=== PATIENT | female | born 1960 | race Caucasian/White ===

== ENCOUNTER → 2018-01-04 15:51 | Outpatient (CLI) | payer OTHER, SELFPAY ==
[2018-01-04 17:46] LABS: Absolute Lymphocyte Count 2.08 X10^3/ul (0.83-4.51); Absolute Neutrophil Count 3.3 X10^3/uL (2.0-7.7); Basophil# 0.01 X10^3/uL; Basophil% 0.2 % (0-1); Eosinophil# 0.02 X10^3/uL; Eosinophils% 0.3 % (0-5); Hematocrit 38.9 % (37-47); Hemoglobin 12.5 g/dl (12.0-15.0); Lymphocyte # 2.08 X10^3/ul (4.0); Lymphocyte % 35.5 % (19-41); Mean Corp Hgb Conc 32.1 g/gl (32-36); Mean Corpuscular Hgb 29.5 pg (27.0-32.0); Mean Corpuscular Volume 91.7 fL (81-99); Mean Platelet Vol. 11.9 fl (6.2-12.0); Monocyte% 6.8 % (0-10); Neutrophil # 3.33 X10^3/uL (2.7-7.7); Neutrophil % 56.9 % (47-70); Platelet Count 235 K/mm3 (150-450); RBC Distribution Width CV 13.7 % (11.6-14.6); RBC Distribution Width SD 45.4 fl (35.1-43.9); Red Blood Count 4.24 M/mm3 (4.2-5.4); White Blood Count 5.9 K/mm3 (4.4-11.0)
[2018-01-04 18:05] LABS: POSITIVE COUNT NO; POSITIVE DIFFERENTIAL NO; POSITIVE MORPHOLOGY NO
[2018-01-04 18:23] LABS: Ferritin 99 ng/mL (8-252); Free T3 2.6 pg/mL (2.18-3.98); Iron 49 ug/dL (50-170); T4 Free Direct 0.91 ng/dL (0.76-1.46); Thyroid Stim Hormone (TSH) 1.21 uIU/mL (0.358-3.74)
[2018-01-05 10:44] LABS: Vitamin D,25 Hydroxy 30.3 ng/mL (29.95-100.01)
== END ==
PROVIDERS: Family Provider Family Medicine; PCP Family Medicine; Visit Provider Family Medicine
DX: E03.9 Hypothyroidism, unspecified (principal); D64.9 Anemia, unspecified; E55.9 Vitamin D deficiency, unspecified
CPT/HCPCS: 36415; 80053; 82306; 82728; 83540; 84439; 84443; 84481; 85025

== ENCOUNTER → 2018-02-03 11:50 | Outpatient (CLI) | payer OTHER, SELFPAY ==
[2018-02-03 16:33] LABS: Chlamydia Trachomatis by PCR Negative (Negative); Probe Check PASS; Sample Adequacy Control PASS; Specimen Processing Control PASS
== END ==
PROVIDERS: Family Provider Family Medicine; PCP Family Medicine; Visit Provider Family Medicine
DX: R30.0 Dysuria (principal)
CPT/HCPCS: 87086; 87088; 87491

== ENCOUNTER → 2018-06-04 10:32 | Outpatient (CLI) | payer OTHER, SELFPAY | PROVIDERS: Family Provider Family Medicine; PCP Family Medicine; Visit Provider Family Medicine | DX: M79.642 Pain in left hand (principal) | CPT/HCPCS: 73130 ==

== ENCOUNTER → 2018-07-03 14:38 | Outpatient (CLI) | payer OTHER, SELFPAY ==
[2018-07-06 18:41] LABS: HPV Reflexed? NOT INDICATED
== END ==
PROVIDERS: Family Provider Family Medicine; PCP Family Medicine; Referring Provider Nurse Practitioner Adult Health; Visit Provider Nurse Practitioner Adult Health
DX: Z01.419 Encounter for gynecological examination (general) (routine) without abnormal findings (principal)
CPT/HCPCS: 88175; G0145

== ENCOUNTER 2018-07-18 07:44 | Day surgery (SDC) | payer OTHER, SELFPAY ==
[2018-07-18] VITALS (7 sets, daily range): BP systolic 123–143; BP diastolic 69–81; PULSE 65–72; RESP 16; TEMP 36.3–36.4; O2SAT 96–99; BMI 37.7
--- NOTE | 2018-07-18 09:04 | H&P.OPEN ---
Past Medical/Surgical History - Planned Operation Planned Operative Procedure/s: COLONOSCOPY Date of Operative Procedure: 07/18/18 Permit Signed: No S.O.S: No Is This Patient Having a Total Joint: No - Previous Hospitalizations/Surgeries HX of Surgeries: GASTRIC BYPASS 2003. D AND C 2001. FOOT SURGERY 2009/ RT. TUBAL LIGATION/ ENDOMETRIAL ABLATION. LASIK EYE BILAT 2004 Any Problems With Anesthesia: No You/Your Family Experience Fever (Hyperthermia) With Anes: No Cholinesterase deficiency: No - Cardiovascular Hx Chest Pain within Last 2 months: No Hx of Irregular Heartbeat and/or Afib: No Hx Heart Attack: No Hx Congestive Heart Failure: No Hx Rheumatic Fever: No Hx Hypertension: Yes - STATES CONTROLLED WITH MED Hx Internal Defibrillator: No Hx Pacemaker: No Hx Cardiac Catheterization: No Hx Cardiac Surgery/Stents/Etc.: No Hx Stress Test: No - ECHO 2004 HX Edema: No Hx Pain in Legs when Walking/Leg Cramps: Yes - LEG CRAMPS - Respiratory Chronic Cough: No HX of Shortness of Breath: No Hoarseness: No Hx Chronic Obstructive Pulmonary Disease (COPD): No Hx Asthma: No Hx Emphysema: No Hx Sleep Apnea: No Hx Oxygen Use at Home: No Hx Respiratory Tract Infection/Cold (presently): No Do You Snore Loudly (louder than talking or can be heard): No Do You Often Feel Tired/ Fatigued/ Sleepy Dring Daytime?: No Has Anyone Observed You Stop Breathing During Sleep?: No Result (for STOP score): Negative Hx Smoking: Yes - QUIT 35 YRS AGO Smoking Status: Former smoker - Gastrointestinal Hx Gastroesophageal Reflux: No Hx Gastrointestinal Disorders: Yes - HX GASTRIC BYPASS Hx Gastrointestinal Bleed: No Hx Ulcer: No Hx Hiatal Hernia: No Difficulty Chewing/Swallowing: No Recent Onset of Swallowing Problems: No Special diet followed at home: Yes - SMALL PORTIONS Hx Unplanned Weight Loss of 20#: No HX Unplanned Weight Gain of 20#: No - Neurological Hx Seizures: No HX Syncope/Blackout Spells/Unconsciousness: No Hx CVA/Stroke: No Hx Transient Ischemic Attacks (TIA): No Hx Multiple Sclerosis: No Hx Parkinson's Disease: No Hx Head/Neck Injury: No Hx Headaches: Yes - STRESS INDUCED Hx Back Injury/Pain: No Recent Onset of Speech Difficulty: No Restless Legs: No Does patient have nerve stimulator: No Patient instructed to have device shut off: No Rep notified?: No - Blood Disorder Hx Leukemia: No Bleeding Tendencies: No Hx Deep Vein Thrombosis: No Hx High Cholesterol: No Blood Transmitted Disease: No Hx Hepatitis: No Hx Cirrhosis: No Hx Anemia: Yes - ON IRON Hx Blood Disorders: No - Reproduction : No Is Patient Lactating: No Hx Hysterectomy: No Hx Tubal Ligation: Yes Are You Post Menopause: Yes - Genitourinary Hx Renal Disease: No - Musculoskeletal Hx Arthritis: Yes Hx Rheumatoid Arthritis: No Hx Gout: No Recent Onset of an Orthopedic Problem: No - Endocrine Hx Diabetes: No Thyroid Disease: Yes - ON MED Hx Steroid Therapy: No - Psycho/Social Hx Substance Use: No Hx Alcohol Use: Yes - 1 DRINK/MONTH Hx Anxiety: Yes Hx Depression: Yes - ON MED Mental Illness: No Hx Dementia: No - Miscellaneous Hx Cancer: No Recent Exposure to Contagious Disease: No Active MRSA: No Hx of C-Diff: No Any Loose Teeth: No Allergies No Known Allergies Allergy (Verified 07/17/18 11:10) - Discharge Is Pt Admitted From a Intermediate, or a Longterm: No Who Could Help: After D/C, Where Do you Plan to Go: Return Home - Physical Exam General: Alert, Oriented x3, Cooperative, No apparent distress Lungs: Normal air movement Cardiovascular: Regular rate, Regular Rhythm Abdomen: Soft, Non Tender, Non-Distended Extremities: No clubbing, No cyanosis Neurological: Cranial nerves II-XII grossly intact Psych/Mental Status: Normal Affect Vital Signs Temp Pulse Resp BP Pulse Ox 97.6 F L 66 16 139/77 H 97 07/18/18 08:24 07/18/18 08:24 07/18/18 08:24 07/18/18 08:24 07/18/18 08:24 Oxygen Delivery Method Room Air Weight: 206 lb 3.2 oz Body Mass Index (BMI) 37.7 Assessment/Plan 57 y/o F for screening colonoscopy, no prev. colonoscopy, 1st degree cousin on fathers side dx w colon cancer at 65y/o, no 1st degree, +BM daily Surgery Risks - Colonoscopy I discussed with the patient the risks of the procedure: Yes Risks Include but are not Limited To: Risks include but are not limited to: Bleeding, perforation requiring further surgery, inability to complete colonoscopy requiring barium enema. Pt had no further questions
--- NOTE | 2018-07-18 09:44 | OP.ENDO_ITS ---
Patient Name: Tahmina Altman Procedure Date: 07/18/2018 8:52 AM Date of : 1960 Age: 57 Procedure: Colonoscopy Indications: Screening for colorectal malignant neoplasm Providers: Arelis Sandoval MD Referring MD: Arelis Sandoval MD Medicines: Monitored Anesthesia Care Patient Profile: Last Colonoscopy: none. The patient's first colonoscopy is today. Complications: No immediate complications. Procedure: Pre-Anesthesia Assessment: - Prior to the procedure, a History and Physical was performed, and patient medications and allergies were reviewed. The patient's tolerance of previous anesthesia was also reviewed. The risks and benefits of the procedure and the sedation options and risks were discussed with the patient. All questions were answered, and informed consent was obtained. Prior Anticoagulants: The patient has taken no previous anticoagulant or antiplatelet agents. ASA Grade Assessment: II - A patient with mild systemic disease. After reviewing the risks and benefits, the patient was deemed in satisfactory condition to undergo the procedure. After I obtained informed consent, the scope was passed under direct vision. Throughout the procedure, the patient's blood pressure, pulse, and oxygen saturations were monitored continuously. The colonoscope was introduced through the anus and advanced to the cecum, identified by the appendiceal orifice, ileocecal valve and palpation. The colonoscopy was performed without difficulty. The patient tolerated the procedure well. The quality of the bowel preparation was good. Scope In: 9:10:27 AM Scope Withdrawal Time 0 hours 15 minutes 44 seconds Scope Out: 9:35:27 AM Total Procedure Duration Time 0 hours 25 minutes 0 seconds Findings: The perianal and digital rectal examinations were normal. Multiple small-mouthed diverticula were found in the sigmoid colon and descending colon. The retroflexed view of the distal rectum and anal verge was normal and showed no anal or rectal abnormalities. Impression: - Diverticulosis in the sigmoid colon and in the descending colon. - The distal rectum and anal verge are normal on retroflexion view. - No specimens collected. Recommendation: - Discharge patient to home. - High fiber diet. - Continue present medications. - Repeat colonoscopy in 10 years for surveillance. Procedure Code(s): --- Professional --- G0121, Colorectal cancer screening; colonoscopy on individual not meeting criteria for high risk Diagnosis Code(s): --- Professional --- Z12.11, Encounter for screening for malignant neoplasm of colon K57.30, Diverticulosis of large intestine without perforation or abscess without bleeding CPT copyright 2017 [employer]. All rights reserved. The codes documented in this report are preliminary and upon pourer crane ladle review may be revised to meet current compliance requirements. MD Arelis Huang MD 07/18/2018 9:43:59 AM This report has been signed electronically. Number of Addenda: 0 Note Initiated On: 07/18/2018 8:52 AM
== END 2018-07-18 10:28 | disposition home or self-care (01) ==
LOC: EN 07:45 → AC 07:46
PROVIDERS: Family Provider Family Medicine; PCP Family Medicine; Referring Provider Surgery; Visit Provider Surgery
PROC: 0DJD8ZZ Inspection of Lower Intestinal Tract, Via Natural or Artificial Opening Endoscopic (ICD-10-PCS; CPT 45378; principal; 2018-07-18 08:40)
DX: Z12.11 Encounter for screening for malignant neoplasm of colon (principal); K57.30 Diverticulosis of large intestine without perforation or abscess without bleeding; D64.9 Anemia, unspecified; F41.9 Anxiety disorder, unspecified; E06.9 Thyroiditis, unspecified; I10 Essential (primary) hypertension; Z80.0 Family history of malignant neoplasm of digestive organs; Z98.84 Bariatric surgery status; Z87.891 Personal history of nicotine dependence; Z79.899 Other long term (current) drug therapy
CPT/HCPCS: 45378; J7120

== ENCOUNTER → 2018-08-16 12:42 | Outpatient (CLI) | payer OTHER, SELFPAY ==
--- NOTE | 2018-08-16 12:59 | BI_ITS ---
MAMMOGRAPHY - BILATERAL SCREENING REASON FOR EXAM: Female, 57 years old. Routine annual screening examination. PERTINENT HISTORY: Mother with breast cancer. Aunt with breast cancer. Remote left excisional breast biopsy. TECHNIQUE: Digital bilateral breast nestor (3D mammographic acquisition) in the CC and MLO projections. 2-D mediolateral oblique (MLO) and craniocaudad (CC) views of both breasts were obtained. CAD: Full Field Digital Mammography with Computer Added Detection was performed. COMPARISON: Comparison is made with prior outside examination dated November 20, 2015. FINDINGS: Breast Composition: There are scattered areas of fibroglandular density. Questionable 5.8 mm x 7.8 mm slightly irregular nodule in the anterior mid medial aspect of the right breast. Correlation with ultrasound is recommended. No other significant abnormalities are identified. BI/SCREENING MAMM (CAD), BILAT IMPRESSION: Questionable 5.8 mm x 7.8 mm slightly irregular nodule in the anterior and medial aspect of the right breast as described. Correlation with ultrasound is recommended. ASSESSMENT CATEGORY: BIRADS Category 0: Incomplete. Need additional imaging evaluation. A letter regarding these results will be sent to the patient by the facility within 30 days. Approximately 10% of breast cancers are not detected by mammography. A normal mammogram should not delay biopsy of a clinically suspicious abnormality. [id number] Electronically Signed: Anibal Ng MD at 12:21 EST Tel [phone], Service support ,
--- NOTE | 2018-08-16 13:33 | BD_ITS ---
STUDY: DUAL ENERGY X-RAY ABSORPTIOMETRY / DXA REASON FOR EXAM: Female, 57 years old. The patient is postmenopausal. No loss of height. TECHNIQUE: Bone Mineral Density (BMD) measurements of lumbar spine and bilateral hips were obtained. COMPARISON: None. FINDINGS: Lumbar Spine (L1-L4): g/cm2 (1.135) / T-score (-0.4) / Z-score (0.6) Findings are suggestive of normal bone density with a low fracture risk. Left Femur Total: g/cm2 (0.882) / T-score (-1.0) / Z-score (-0.3) Left Femoral Neck: g/cm2 (0.735) / T-score (-2.2) / Z-score (-1.1) Right Femur Total: g/cm2 (0.859) / T-score (-1.2) / Z-score (-0.4) Right Femoral Neck: g/cm2 (0.754) / T-score (-2.0) / Z-score (-1.0) BD/Dexa Bone Density Study IMPRESSION: The patient is considered osteopenic as outlined below according to World Miles Organization (WHO) criteria with a moderate fracture risk. Reference Information: The T-score is the number of standard deviations above or below the standard which is normal for young adults at their peak bone mineral density. The World Health Organization (WHO) interprets the T-scores as follows: Above -1 Normal bone density Between -1 and -2.5 Osteopenia Equal to / or below -2.5 Osteoporosis As a practical clinical guideline, osteopenia may be graded as follows: Mild -1 through -1.5 Moderate -1.6 through -2.0 Severe -2.1 through -2.4 The Z-score is the number of standard deviations above or below age-matched controls. A Z-score of less than -1.5 would be considered abnormal. References: 1. NIH Osteoporosis and Related Bone Diseases http://www.osteo.org 2. International Society for Clinical Densitometry http://www.iscd.org 3. National Osteoporosis Foundation http://www.nof.org Electronically Signed: Anibal Ng MD at 12:28 EST Tel [phone], Service support ,
== END ==
PROVIDERS: Family Provider Family Medicine; PCP Family Medicine; Referring Provider Nurse Practitioner Adult Health; Visit Provider Nurse Practitioner Adult Health
DX: Z12.31 Encounter for screening mammogram for malignant neoplasm of breast (principal); Z78.0 Asymptomatic menopausal state
CPT/HCPCS: 77063; 77067; 77080

== ENCOUNTER → 2018-08-23 08:15 | Outpatient (CLI) | payer OTHER, SELFPAY ==
--- NOTE | 2018-08-23 08:19 | US_ITS ---
STUDY: ULTRASOUND BREAST - RIGHT REASON FOR EXAM: Female, 57 years old. Abnormal screening mammogram. TECHNIQUE: Axial and longitudinal images of the RIGHT breast were performed with a high resolution ultrasound transducer. COMPARISON: Comparison is made with prior mammogram dated August 16, 2018. FINDINGS: RIGHT Breast: There is a 4 mm x 6 mm x 5 mm well-defined slightly echogenic nodule at the 12:00 position of the breast at 3 cm from the nipple. This most likely represents a small lipoma. There is also an 8 mm x 4 mm x 5 mm well-defined echogenic nodule with a hypoechoic ring at the 1:00 position of the breast at approximately 1 cm from nipple. This most likely represents a small lymph node. This corresponds to the mammographic findings. US/Breast Limited Unilateral IMPRESSION: The mammographic findings are suggestive of a small lymph node at the 1:00 position of the breast at approximately 1 cm from nipple. Incidental note is made of a 4 mm x 6 mm x 5 mm well-defined echogenic nodule at the 12:00 position of breast at 3 cm from nipple most likely represent a small lipoma. ASSESSMENT CATEGORY: BIRADS Category 2: Benign. A letter regarding these results will be sent to the patient by the facility within 30 days. Electronically Signed: Anibal Ng MD at 9:13 EST Tel [phone], Service support ,
== END ==
PROVIDERS: Family Provider Family Medicine; PCP Family Medicine; Referring Provider Nurse Practitioner Adult Health; Visit Provider Nurse Practitioner Adult Health
DX: R92.8 Other abnormal and inconclusive findings on diagnostic imaging of breast (principal)
CPT/HCPCS: 76642

== ENCOUNTER → 2018-12-04 18:15 | Outpatient (CLI) | payer OTHER, SELFPAY ==
[2018-07-18 08:24] VITALS: BMI 37.7
== END ==
PROVIDERS: Family Provider Family Medicine; PCP Family Medicine; Referring Provider Family Medicine; Visit Provider Family Medicine
DX: R30.0 Dysuria (principal)
CPT/HCPCS: 87086; 87088

== ENCOUNTER → 2019-02-22 | Outpatient (CLI) | payer OTHER, SELFPAY ==
[2018-07-18 08:24] VITALS: BMI 37.7
[2019-02-22 15:52] LABS: BUN 22 mg/dL (7-18); Creatinine, Serum 0.71 mg/dL (0.55-1.02); Glucose 80 mg/dL (74-106)
[2019-02-22 15:53] LABS: ALB/GLOB Ratio 1.1 RATIO (0.9-2.4); AST(SGOT) 21 U/L (15-37); Alanine Aminotransfer ALT/SGPT 24 U/L (13-56); Albumin, Serum 3.8 g/dL (3.2-5.0); Alkaline Phosphatase 101 U/L (45-117); Anion Gap 6 (5-15); Calcium,Total 8.9 mg/dL (8.5-10.1); Chloride 104 mmol/L (98-107); Cholesterol 196 mg/dL (200); EST Glomerular Filtration Rate 90 mL/min (>60); Est Glom Filt Rate - Afr Amer 109 mL/min (>60); Globulin 3.5 g/dL (2.2-4.2); High Density Lipoprotein 98 mg/dL; Potassium 4.2 mmol/L (3.5-5.1); Protein, Total 7.3 g/dL (6.4-8.2); Sodium Level 139 mmol/L (136-145); Thyroid Stim Hormone (TSH) 2.22 uIU/mL (0.358-3.74); Triglycerides 42 mg/dL; Very Low Density Lipoprotein 8 mg/dL (5-40)
[2019-02-22 17:30] LABS: Vitamin D,25 Hydroxy 25.5 ng/mL (29.95-100.01)
[2019-02-27 18:02] LABS: Ferritin 87 ng/mL (8-252); Iron 46 ug/dL (50-170)
== END | disposition home or self-care (01) ==
LOC: MFPLAB 12:32
PROVIDERS: Family Provider Family Medicine; PCP Family Medicine; Referring Provider Family Medicine; Visit Provider Family Medicine
DX: I10 Essential (primary) hypertension (principal); E03.9 Hypothyroidism, unspecified; E55.9 Vitamin D deficiency, unspecified
CPT/HCPCS: 36415; 80053; 80061; 82306; 82728; 83540; 84443

== ENCOUNTER → 2020-07-20 | Outpatient (CLI) | payer OTHER, SELFPAY ==
[2020-07-24 17:51] LABS: HPV Reflexed? NOT INDICATED
== END | disposition home or self-care (01) ==
LOC: MFPLAB 13:46
PROVIDERS: PCP Family Medicine; Visit Provider Family Medicine
DX: Z01.419 Encounter for gynecological examination (general) (routine) without abnormal findings (principal)
CPT/HCPCS: 88175; G0145

== ENCOUNTER → 2020-08-11 06:59 | Outpatient (CLI) | payer OTHER, SELFPAY ==
--- NOTE | 2020-08-11 07:03 | BI_ITS ---
MAMMOGRAPHY - BILATERAL SCREENING REASON FOR EXAM: Female, 59 years old. Routine annual screening examination. PERTINENT HISTORY: Mother with breast cancer. Aunt with breast cancer. Remote left excisional breast biopsy. TECHNIQUE: Digital bilateral breast shabnam (3D mammographic acquisition) in the CC and MLO projections. 2-D mediolateral oblique (MLO) and craniocaudad (CC) views of both breasts were obtained. CAD: Full Field Digital Mammography with Computer Added Detection was performed. COMPARISON: Comparison is made with prior study dated 08/16/2018. FINDINGS: Breast Composition: There are scattered areas of fibroglandular density. There are no dominant masses or suspicious calcifications. Stable 6 mm nodule in the anterior mid medial portion of the right breast. No other significant abnormalities are identified. There has been no significant change since the prior study. BI/SCREEN MAMM (CAD) W/SHABNAM BILAT IMPRESSION: Stable bilateral screening mammogram. Yearly follow-up mammogram recommended. (A) ASSESSMENT CATEGORY: BIRADS Category 2: Benign. A letter regarding these results will be sent to the patient by the facility within 30 days. Approximately 10% of breast cancers are not detected by mammography. A normal mammogram should not delay biopsy of a clinically suspicious abnormality. [id number] Electronically Signed: Anibal Ng, at 8:41 EST , Service support ,
== END ==
PROVIDERS: PCP Family Medicine; Referring Provider Nurse Practitioner Adult Health; Visit Provider Nurse Practitioner Adult Health
DX: Z12.31 Encounter for screening mammogram for malignant neoplasm of breast (principal)
CPT/HCPCS: 77063; 77067

== ENCOUNTER → 2020-09-10 10:33 | Outpatient (CLI) | payer OTHER, SELFPAY ==
[2018-07-18 08:24] VITALS: BMI 37.7
[2020-09-10 12:44] LABS: Anion Gap 3 (5-15); BUN 26 mg/dL (7-18); BUN/Creat Ratio 33.1 RATIO (10-20); Calcium,Total 9.5 mg/dL (8.5-10.1); Chloride 103 mmol/L (98-107); Cholesterol 219 mg/dL (200); Creatinine, Serum 0.78 mg/dL (0.55-1.02); EST Glomerular Filtration Rate 80 mL/min (>60); Est Glom Filt Rate - Afr Amer 97 mL/min (>60); Glucose 86 mg/dL (74-106); High Density Lipoprotein 92 mg/dL; Potassium 4.5 mmol/L (3.5-5.1); Sodium Level 137 mmol/L (136-145); Thyroid Stim Hormone (TSH) 2.89 uIU/mL (0.358-3.74); Triglycerides 55 mg/dL; Very Low Density Lipoprotein 11 mg/dL (5-40)
[2020-09-10 13:07] LABS: Vitamin D,25 Hydroxy 31.8 ng/mL
== END ==
PROVIDERS: PCP Family Medicine; Referring Provider Family Medicine; Visit Provider Family Medicine
DX: I10 Essential (primary) hypertension (principal); E55.9 Vitamin D deficiency, unspecified; E03.9 Hypothyroidism, unspecified
CPT/HCPCS: 36415; 80048; 80061; 82306; 84443

== ENCOUNTER → 2021-08-13 08:15 | Outpatient (CLI) | payer OTHER, SELFPAY ==
[2021-08-13 09:49] LABS: Hematocrit 42.6 % (37-47); Hemoglobin 13.3 g/dL (12.0-15.0); Mean Corp Hgb Conc 31.2 g/dL (32-36); Mean Corpuscular Hgb 28.5 pg (27.0-32.0); Mean Corpuscular Volume 91.2 fL (81-99); Mean Platelet Vol. 11.9 fl (6.2-12.0); Platelet Count 219 K/mm3 (150-450); RBC Distribution Width CV 14.6 % (11.6-14.6); RBC Distribution Width SD 48.9 fl (35.1-43.9); Red Blood Count 4.67 M/mm3 (4.2-5.4); White Blood Count 5.6 K/mm3 (4.4-11.0)
[2021-08-13 10:09] LABS: Vitamin B12 1801 pg/mL (211-911); Vitamin D,25 Hydroxy 35.7 ng/mL
[2021-08-13 10:17] LABS: Anion Gap 5 (5-15); BUN 22 mg/dL (7-18); BUN/Creat Ratio 27.7 RATIO (10-20); Calcium,Total 9.9 mg/dL (8.5-10.1); Chloride 103 mmol/L (98-107); Cholesterol 192 mg/dL (200); Creatinine, Serum 0.79 mg/dL (0.55-1.02); EST Glomerular Filtration Rate 79 mL/min (>60); Est Glom Filt Rate - Afr Amer 95 mL/min (>60); Glucose 97 mg/dL (74-106); High Density Lipoprotein 87 mg/dL; Iron 52 ug/dL (50-170); Potassium 4.3 mmol/L (3.5-5.1); Sodium Level 139 mmol/L (136-145); Thyroid Stim Hormone (TSH) 2.87 uIU/mL (0.358-3.74); Triglycerides 51 mg/dL; Very Low Density Lipoprotein 10 mg/dL (5-40)
== END ==
PROVIDERS: PCP Family Medicine; Referring Provider Family Medicine; Visit Provider Family Medicine
DX: E03.9 Hypothyroidism, unspecified (principal); I10 Essential (primary) hypertension; D64.9 Anemia, unspecified; E55.9 Vitamin D deficiency, unspecified
CPT/HCPCS: 36415; 80048; 80061; 82306; 82607; 83540; 84443; 85027

== ENCOUNTER → 2021-08-16 15:40 | Outpatient (CLI) | payer OTHER, SELFPAY ==
[2021-08-16 18:11] LABS: CRP 5.43 mg/L (0.0-3.0)
[2021-08-18 13:48] LABS: ANTINUCLEAR ANTIBODIES DIRECT Negative (Negative)
== END ==
PROVIDERS: PCP Family Medicine; Visit Provider Family Medicine
DX: R53.83 Other fatigue (principal)
CPT/HCPCS: 85007; 86038; 86140

== ENCOUNTER 2022-11-06 08:20 | Emergency (ER) | payer OTHER, SELFPAY ==
[2022-11-06 08:23] VITALS: BP 158/74; PULSE 88; RESP 16; TEMP 36.1; O2SAT 95; BMI 40.1
--- NOTE | 2022-11-06 08:46 | CT_ITS ---
EXAM: CT ABDOMEN AND PELVIS WITH INTRAVENOUS CONTRAST CLINICAL INDICATION: LLQ abd pain TECHNIQUE: Helically acquired images were obtained of the abdomen and pelvis with intravenous contrast. This CT exam was performed using one or more of the following dose reduction techniques: automated exposure control, adjustment of the mA and/or kV according to patient size, and/or use of iterative reconstruction technique. This report was created using [employer] report generation technology. CONTRAST: IV 100mL [id number] RADIATION DOSE: CTDIvol = 18.53 mGy, DLP = 1206.27 mGy-cm COMPARISON: None. FINDINGS: LOWER THORAX: Unremarkable. Lung bases are clear. No cardiomegaly. No significant pericardial effusion. ABDOMEN: LIVER: Unremarkable. Homogeneous. No focal mass. GALLBLADDER AND BILE DUCTS: Unremarkable. No calcified gallstones. No gallbladder distention or wall edema. No intra- or extrahepatic biliary ductal dilation. PANCREAS: Unremarkable. No focal cystic or solid mass. SPLEEN: Unremarkable. Normal size without focal cystic or solid mass. ADRENALS: Unremarkable. No nodules. KIDNEYS AND URETERS: Small nonenhancing cysts in both kidneys. Normal renal size and position. STOMACH AND BOWEL: Diverticula with abnormal intramedullary thickening and inflammatory changes of the pericolic fat consistent with diverticulitis. No diverticular abscess or phlegmon. Surgical sutures in the left proximal small bowel. No stomach or bowel distention. PELVIS: APPENDIX: Normal. BLADDER: Unremarkable. REPRODUCTIVE: Unremarkable as visualized. No mass. ABDOMEN and PELVIS: INTRAPERITONEAL SPACE: Unremarkable. No ascites or other fluid collection. No free air. BONES/JOINTS: Right-sided L3 benign vertebral body hemangioma. No suspicious lytic or blastic abnormality. SOFT TISSUES: Unremarkable. No discrete abdominal or pelvic wall hernia. VASCULATURE: Unremarkable. Abdominal aorta is non-dilated. LYMPH NODES: Unremarkable. No enlarged lymph nodes. CT/Abdomen/Pelvis W IV Cont ONLY IMPRESSION: Acute diverticulitis of the sigmoid colon without diverticular abscess or phlegmon. Electronically Signed: Julio Christian MD at 9:46 EST ,
--- NOTE | 2022-11-06 08:46 | ED.VIS.GI ---
HPI HPI - GI History of Present Illness Chief Complaint: Abd Pain Detail of Chief Complaint: Left lower quadrant abdominal pain Informant: patient Abdominal Pain/Flank Pain Onset: Today and Yesterday Context: Gradual Onset Timing: Continuous Location: LLQ Current Severity: Mild Maximum Severity: Moderate Worsened by: Nothing Relieved by: Nothing Nausea/Vomiting/Emesis GI Symptom: Negative for Nausea or Vomiting Diarrhea/Melena/Hematochezia GI Symptom: Negative for Diarrhea, Melena or Hematochezia Associated Symptoms Associated Symptoms: Negative for Dysuria, Frequency or Hematuria Narrative Narrative: 61-year-old female history of hypertension and prior gastric bypass about 18 years ago. States that Monday she is developed left lower quadrant abdominal pain. She had it 2 weeks ago and lasted about 12 to 24 hours and resolved. Is now been constant for last 2 to 3 days. She denies any nausea, vomiting or diarrhea. No fever or chills. No significant constipation. Denies any dysuria. No weight change. No melena. No abdominal trauma. Prior similar symptoms: No Recent Illness/Hospitalization: No PFSH PFS Medical History Depression HTN (hypertension) Home Medications Cetirizine Hcl [Zyrtec] 10 mg PO DAILY ALLERGIES 07/17/18 [History Last Taken Unknown] L.acidoph, paracasei,B. lactis 10 billion cell capsule 1 ea PO DAILY SUPPLEMENT 07/17/18 [History Last Taken Unknown] ascorbic acid (vitamin C) 1,000 mg tablet (Vitamin C) 1,000 mg PO DAILY SUPPLEMENT 07/17/18 [History Last Taken Unknown] biotin 5 mg capsule 5 mg PO DAILY SUPPLEMENT 07/17/18 [History Last Taken Unknown] desvenlafaxine succinate 50 mg tablet,extended release 24 hr (Pristiq) 50 mg PO DAILY ANTIDEPRESSANT 07/17/18 [History Last Taken Unknown] dextroamphetamine-amphetamine 30 mg tablet (Adderall) 15 mg PO BID ADHD 07/17/18 [History Last Taken Unknown] ferrous gluconate 236 mg (27 mg iron) tablet 65 mg PO DAILY SUPPLEMENT 07/17/18 [History Last Taken Unknown] levothyroxine 50 mcg tablet (Synthroid) 50 mcg PO DAILY THYROID 07/17/18 [History Last Taken 07/18/18 06:15 50 MCG] losartan 50 mg-hydrochlorothiazide 12.5 mg tablet 1 ea PO DAILY BP 07/17/18 [History Last Taken Unknown] multivitamin (Multiple Vitamins tablet) 1 ea PO DAILY SUPPLEMENT 07/17/18 [History Last Taken Unknown] ciprofloxacin HCl 500 mg tablet (Cipro) 500 mg PO BID 10 days #20 tabs 11/06/22 [Rx Last Taken Unknown] hydrocodone-acetaminophen 5-325mg 5mg-325mg 1 tab PO Q4H PRN pain 5 days #14 tabs 11/06/22 [Rx Last Taken Unknown] metronidazole 500 mg tablet 500 mg PO TID 10 days #30 tabs 11/06/22 [Rx Last Taken Unknown] Allergy/AdvReac Type Severity Reaction Status Date / Time morphine AdvReac Nausea Verified 11/06/22 08:21 Surgical History Gastric bypass status for obesity H/O foot surgery Social History Smoking Status: Never smoker ROS ROS ED ROS Narrative Left lower quadrant abdominal pain. Review of Systems ROS Unobtainable: Denies due to encephalopathy Constitutional Constitutional ED: Denies chills or fever(s) ENT ENT ED: Denies ear pain Cardiovascular Cardiovascular: Denies chest pain Respiratory/Chest Respiratory/Chest: Denies cough or dyspnea Gastrointestinal Gastrointestinal: Reports abdominal pain; Denies constipation, diarrhea, melena, nausea or vomiting Genitourinary Genitourinary ED: Denies dysuria or hematuria Musculoskeletal Musculoskeletal: Denies arthralgias or back pain Integumentary Denies abscess Neurologic Neurologic: Denies headache(s) Psychiatric Psychiatric: Denies anxiety or depression Endocrine Endocrinology: Denies polydipsia Hematologic/Lymphatic Hematologic/Lymphatic: Denies easy bleeding Allergic/Immunologic Allergic/Immunologic ED: Denies mouth swelling or tongue swelling EXAM Physical Exam Narrative Exam Narrative: 61-year-old female no acute distress. Vital signs stable afebrile. H EENT exam unremarkable. Lungs clear. Heart regular rhythm no murmur. Abdomen soft, nondistended, normal bowel sounds no peritoneal signs. Tender only in the left lower quadrant. No hernia or mass. No signs of trauma. No pulsatile mass. Both the right upper and right lower quadrants are unremarkable. Moving all 4 extremities. Calves are nontender without edema. Back nontender. Neurologically she is awake and alert. Const Vital Signs: 11/06/22 08:23 Temperature 97.0 F L Temperature Source Temporal Pulse Rate 88 Respiratory Rate 16 Blood Pressure 158/74 H Blood Pressure Mean 102 Pulse Ox 95 Oxygen Delivery Method Room Air Positive well nourished, well developed and obese; Negative for cachectic, contractures or unkempt General Appearance ED: well developed and NAD; Negative for unkempt, cachectic, contractures or pallor Nutritional Appearance: obese; Negative for cachectic HEENT Reports moist mucous membranes normocephalic and atraumatic; Negative for trauma or tenderness Eyes PERRL and EOMs intact bilaterally General Eye ED: Negative for pale conjunctiva or scleral icterus Neck no lymphadenopathy, supple and no JVD General: Negative for tenderness Carotids: Negative for other Lymph Lymphatic: Negative for other Resp normal respiratory effort and clear to auscultation bilaterally Effort and Inspection: Negative for respiratory distress or retractions Auscultation: Negative for rales, rhonchi or wheezes Cardio regular rate, regular rhythm, S1 normal heart sound, S2 normal heart sound and no murmurs Rate: Negative for bradycardia Rhythm: Negative for abnormal rhythm GI non-distended and no masses; Negative for non-tender GI Narrative: Left lower quadrant tenderness only. No hernia or mass. Inspection: Negative for abdominal distention Auscultation: normoactive bowel sounds Palpation: soft and tender; Negative for guarding, rigid or hepatomegaly Back/Spine no CVA tenderness General Back: Negative for CVA tenderness Cervical Spine: Negative for cervical spine tenderness Thoracic Spine / Upper Back: Negative for thoracic spinal tenderness Lumbar Spine / Lower Back: Negative for lumbar spinal tenderness Coccyx: Negative for other Extremity full ROM General Extremety ED: Negative for edema or tenderness General Extremity: Negative for edema Neuro CN's II-XII intact bilaterally and moves all extremities Sensorium / Orientation: alert, oriented to person, oriented to place and oriented to time; Negative for orientation impaired, confused, lethargic or stuporous Motor Exam: strength 5/5 throughout Psych mental status grossly normal and thought process normal Appearance: Negative for unkempt Attitude: No agitated Mood & Affect: Negative for depressed, anxious or tearful Skin no wounds General Skin Exam: Negative for jaundice or pallor Lesions: no lesions Rashes: no rashes Trauma: Negative for abrasion MDM MDM MDM Narrative Medical decision making narrative: 61-year-old left lower quadrant abdominal pain differential would include acute diverticulitis versus hernia which clinically I do not find at this time. Versus UTI but she has no urinary symptoms. Versus constipation or other etiology. CAT scan and labs are being obtained. She did not want any thing for pain. She is not having any nausea. Patient doing well at 9:58 PM. We went over all of her test results. Her history and exam and her test are consistent with acute sigmoid diverticulitis. She will be started on Cipro and Flagyl for 10 days each. Cipro twice daily. Flagyl 3 times daily. Tylenol for pain. She will be given a dose of each antibiotic here prior to discharge. She will be given a prescription for [place] as needed for pain. She did not want to get that filled like she needed to. She is instructed follow-up with her primary care physician Dr. Mayco Viera to ensure she is improving. Return if worse. Lab Data Attestation: I reviewed the patient's lab results. Lab results narrative: CBC unremarkable. White count 8.4. H&H of 13.1 and 42. Platelets 215. Urinalysis normal no white or red cells. No bacteria. No nitrites. CMP unremarkable. Gap of 7. BUN 19 creatinine 0.8. Liver enzymes unremarkable. CAT scan the abdomen with IV contrast shows acute sigmoid diverticulitis. No abscess or perforation. Read by the radiologist and reviewed by me. Labs: Laboratory Results - last 24 hr 11/06/22 11/06/22 11/06/22 08:35 08:35 08:55 WBC 8.4 RBC 4.63 Hgb 13.1 Hct 42.0 MCV 90.7 MCH 28.3 MCHC 31.2 L RDW Std Deviation 48.7 H RDW Coeff of [place] 14.6 Plt Count 215 MPV 11.7 Immature Gran % (Auto) 0.200 Neut % (Auto) 64.4 Lymph % (Auto) 26.5 [place] % (Auto) 8.6 Eos % (Auto) 0.1 Baso % (Auto) 0.2 Absolute Neuts (auto) 5.4 Absolute Lymphs (auto) 2.23 Nucleated RBC % 0 Sodium 142 Potassium 3.8 Chloride 106 Carbon Dioxide 29.0 Anion Gap 7 BUN 19 H Creatinine 0.84 Estim Creat Clear Calc 56.33 Est GFR (MDRD) Af Amer 88 Est GFR (MDRD) Non-Af 73 BUN/Creatinine Ratio 22.5 H Glucose 103 Calcium 9.5 Total Bilirubin 1.10 H AST 20 ALT 20 Alkaline Phosphatase 94 Total Protein 7.9 Albumin 3.6 Globulin 4.3 H Albumin/Globulin Ratio 0.8 L Urine Color Yellow Urine Clarity Clear Urine pH 5.0 Ur Specific [place] 1.020 Urine Protein 15 H Urine Glucose (UA) Normal Urine Ketones Negative Urine Occult Blood 10 H Urine Nitrite Negative Urine Bilirubin 1 H Urine Urobilinogen 1 H Ur Leukocyte Esterase 100 H Urine RBC 0 SEEN Urine WBC 0-5 SEEN Ur Squamous Epith Cells 0-5 SEEN Urine Bacteria 0 SEEN Urine Mucus 0 SEEN Radiography Diagnostic Testing: Clinical Impression(s) from Imaging Studies Abdomen/Pelvis CT 11/06/22 08:46 IMPRESSION: Acute diverticulitis of the sigmoid colon without diverticular abscess or phlegmon. Electronically Signed: Julio Christian MD at 9:46 EST Reading Location ID and State: [address] [place] [address] , Service support , Discharge Plan Triage Chief Complaint: Abd Pain ED Provider: Maurisio Lobo Dx/Rx/DC Orders Clinical Impression: Diverticulitis of sigmoid colon, Abdominal pain, History of hypertension Instructions: ED Diverticulitis Prescriptions: New ciprofloxacin HCl [Cipro] 500 mg tablet 500 mg PO BID 10 Days Qty: 20 0RF metronidazole 500 mg tablet 500 mg PO TID 10 Days Qty: 30 0RF hydrocodone-acetaminophen 5-325 mg tablet 1 tab PO Q4H PRN (Reason: pain) 5 Days Qty: 14 0RF No Action multivitamin [Multiple Vitamins] 1 EACH tablet 1 ea PO DAILY ascorbic acid (vitamin C) [Vitamin C] 1,000 MG tablet 1,000 mg PO DAILY biotin 5 MG capsule 5 mg PO DAILY dextroamphetamine-amphetamine [Adderall] 30 MG tablet 15 mg PO BID levothyroxine [Synthroid] 50 MCG tablet 50 mcg PO DAILY losartan-hydrochlorothiazide 1 EACH tablet 1 ea PO DAILY desvenlafaxine succinate [Pristiq] 50 MG tablet 50 mg PO DAILY ferrous gluconate 236 MG tablet 65 mg PO DAILY L.acidoph, paracasei,B. lactis 1 EACH capsule 1 ea PO DAILY Cetirizine Hcl [Zyrtec] 10 MG tablet 10 mg PO DAILY Primary Care Provider: Brandon Umaña Referrals: Brandon Umaña MD [Primary Care Provider] - 3-5 Days Activity Restrictions/Additional Instructions: Take both antibiotics Cipro and Flagyl till gone. Cipro twice a day. Flagyl 3 times a day both for 10 days. You have sigmoid diverticulitis which is inflammation of diverticulosis in your lower left colon where you have the pain. Tylenol for pain. If not strong enough you get your narcotic pain medication filled which is [place]. If you are taking the [place] do not take extra Tylenol because it has Tylenol in it. [place] diet increase slowly as tolerated. Follow-up with your doctor to ensure you are improving. Return emergency department if you are feeling a lot worse. Disposition Disposition: Home, Self Care
[2022-11-06 08:55] LABS: Absolute Lymphocyte Count 2.23 X10^3/uL (0.83-4.51); Absolute Neutrophil Count 5.4 X10^3/uL (2.0-7.7); Basophil# 0.02 X10^3/uL; Basophil% 0.2 % (0-1); Eosinophil# 0.01 X10^3/uL; Eosinophils% 0.1 % (0-5); Hemoglobin 13.1 g/dL (12.0-15.0); Lymphocyte # 2.23 X10^3/ul (0.83-4.51); Lymphocyte % 26.5 % (19-41); Mean Corp Hgb Conc 31.2 g/dL (32-36); Mean Corpuscular Hgb 28.3 pg (27.0-32.0); Mean Corpuscular Volume 90.7 fL (81-99); Mean Platelet Vol. 11.7 fl (6.2-12.0); Monocyte# 0.72 X10^3/uL; Monocyte% 8.6 % (0-10); NRBC Flagged by Analyzer 0 % (0-5); Neutrophil # 5.41 X10^3/uL (2.7-7.7); Neutrophil % 64.4 % (47-70); Platelet Count 215 K/mm3 (150-450); RBC Distribution Width CV 14.6 % (11.6-14.6); RBC Distribution Width SD 48.7 fl (35.1-43.9); Red Blood Count 4.63 M/mm3 (4.2-5.4); White Blood Count 8.4 K/mm3 (4.4-11.0)
[2022-11-06 08:59] LABS: Bacteria 0 SEEN /hpf (None Seen); Mucous, Urine 0 SEEN /hpf (<or=2+); Red Blood Cells-Urine 0 SEEN /hpf (0-5)
[2022-11-06 09:03] LABS: Color, Urine Yellow (Yellow); Glucose, Dipstick Normal (Normal); Ketone-Dipstick Negative (Negative); Leukocyte Esterase-Dipstick 100 /ul (Negative); Nitrite-Dipstick Negative (Negative); Occult Blood-Urine 10 /ul (Negative); Protein-Dipstick 15 mg/dl (Negative); Urine Clarity Clear (Clear); Urine Urobilinogen 1 mg/dl (Normal)
[2022-11-06 09:11] LABS: Squamous Epithelial Cells - UA 0-5 SEEN /hpf (5-10); Urine Bilirubin Dipstick 1 mg/dL (Negative); White Blood Cells 0-5 SEEN /hpf (0-5)
[2022-11-06 09:17] LABS: ALB/GLOB Ratio 0.8 RATIO (0.9-2.4); AST(SGOT) 20 U/L (15-37); Alanine Aminotransfer ALT/SGPT 20 U/L (13-56); Albumin, Serum 3.6 g/dL (3.2-5.0); Alkaline Phosphatase 94 U/L (45-117); Anion Gap 7 (5-15); BUN 19 mg/dL (7-18); BUN/Creat Ratio 22.5 RATIO (10-20); Calcium,Total 9.5 mg/dL (8.5-10.1); Chloride 106 mmol/L (98-107); Creatinine, Serum 0.84 mg/dL (0.55-1.02); EST Glomerular Filtration Rate 73 mL/min (>60); Est Glom Filt Rate - Afr Amer 88 mL/min (>60); Estimated Creatinine Clearance 56.33 ml/min; Globulin 4.3 g/dL (2.2-4.2); Glucose 103 mg/dL (74-106); Potassium 3.8 mmol/L (3.5-5.1); Protein, Total 7.9 g/dL (6.4-8.2); Sodium Level 142 mmol/L (136-145)
[2022-11-06 10:19] VITALS: BP 168/77; PULSE 75; RESP 16; O2SAT 98
[2022-11-06] MEDS: Ciprofloxacin 500 MG Tablet PO (10:19)
[2022-11-06] MEDS: metroNIDAZOLE 500 MG Tablet PO (10:19)
== END 2022-11-06 10:23 | disposition home or self-care (01) ==
PROVIDERS: Emergency Provider Emergency Medicine; PCP Family Medicine; Visit Provider Emergency Medicine
DX: K57.32 Diverticulitis of large intestine without perforation or abscess without bleeding (principal); R11.2 Nausea with vomiting, unspecified; I10 Essential (primary) hypertension; R10.9 Unspecified abdominal pain; E66.9 Obesity, unspecified
CPT/HCPCS: 74177; 80053; 81001; 85025; 99284; Q9967; A4216

== ENCOUNTER → 2022-11-18 | Outpatient (CLI) | payer OTHER, SELFPAY ==
[2022-11-18 13:04] LABS: Hemoglobin A1c 5.5 % (3.8-5.6)
[2022-11-18 13:38] LABS: AST(SGOT) 29 U/L (15-37); Alanine Aminotransfer ALT/SGPT 29 U/L (13-56); Albumin, Serum 3.6 g/dL (3.2-5.0); Alkaline Phosphatase 68 U/L (45-117); Bilirubin, Direct 0.12 mg/dL (0.00-0.30); Cholesterol 169 mg/dL (200); Globulin 4.1 g/dL (2.2-4.2); High Density Lipoprotein 96 mg/dL; Protein, Total 7.7 g/dL (6.4-8.2); T3 Uptake 31 % (30-39); T4 Free Direct 1.08 ng/dL (0.76-1.46); Triglycerides 62 mg/dL; Very Low Density Lipoprotein 12 mg/dL (5-40)
== END | disposition home or self-care (01) ==
LOC: MTLAB 11:07
PROVIDERS: PCP Family Medicine
DX: R73.03 Prediabetes (principal)
CPT/HCPCS: 36415; 80061; 80076; 83036; 84439; 84443; 84479

== ENCOUNTER 2023-01-29 09:36 | Emergency (ER) | payer OTHER, SELFPAY ==
[2023-01-29 09:37] VITALS: BP 154/78; PULSE 76; RESP 16; TEMP 36.3; O2SAT 97; BMI 38.7
--- NOTE | 2023-01-29 10:11 | EDS_ITS ---
HPI HPI - GI History of Present Illness Chief Complaint: Abd Pain Informant: patient Abdominal Pain/Flank Pain Onset: Today Context: Gradual Onset Timing: Continuous Quality: Sharp and Stabbing Location: LLQ Current Severity: Moderate Maximum Severity: Moderate Worsened by: Nothing Relieved by: Nothing Nausea/Vomiting/Emesis GI Symptom: Positive for Nausea; Negative for Vomiting Onset: Today Severity: Mild Diarrhea/Melena/Hematochezia GI Symptom: Negative for Diarrhea, Melena or Hematochezia Associated Symptoms Associated Symptoms: Negative for Dysuria, Frequency or Hematuria Narrative Narrative: 62-year-old male history of diverticulitis and prior gastric bypass. States that last night she started developing left lower quadrant abdominal pain. Similar episode 3 months ago with diverticulitis. She had constipation on Monday but since then has had a bowel movement. Associated nausea no vomiting or diarrhea. No dysuria or fever. Prior similar symptoms: Yes Recent Illness/Hospitalization: No PFSH PFSH Medical History Depression History of diverticulitis HTN (hypertension) Home Medications Cetirizine Hcl [Zyrtec] 10 mg PO DAILY ALLERGIES 07/17/18 [History Last Taken Unknown] L.acidoph, paracasei,B. lactis 10 billion cell capsule 1 ea PO DAILY SUPPLEMENT 07/17/18 [History Last Taken Unknown] ascorbic acid (vitamin C) 1,000 mg tablet (Vitamin C) 1,000 mg PO DAILY SUPPLEMENT 07/17/18 [History Last Taken Unknown] biotin 5 mg capsule 5 mg PO DAILY SUPPLEMENT 07/17/18 [History Last Taken Unknown] desvenlafaxine succinate 50 mg tablet,extended release 24 hr (Pristiq) 50 mg PO DAILY ANTIDEPRESSANT 07/17/18 [History Last Taken Unknown] dextroamphetamine-amphetamine 30 mg tablet (Adderall) 15 mg PO BID ADHD 07/17/18 [History Last Taken Unknown] ferrous gluconate 236 mg (27 mg iron) tablet 65 mg PO DAILY SUPPLEMENT 07/17/18 [History Last Taken Unknown] levothyroxine 50 mcg tablet (Synthroid) 50 mcg PO DAILY THYROID 07/17/18 [History Last Taken 07/18/18 06:15 50 MCG] losartan 50 mg-hydrochlorothiazide 12.5 mg tablet 1 ea PO DAILY BP 07/17/18 [History Last Taken Unknown] multivitamin (Multiple Vitamins tablet) 1 ea PO DAILY SUPPLEMENT 07/17/18 [Hi story Last Taken Unknown] ciprofloxacin HCl 500 mg tablet (Cipro) 500 mg PO BID 10 days #20 tabs 11/06/22 [Rx Last Taken Unknown] hydrocodone-acetaminophen 5-325mg 5mg-325mg 1 tab PO Q4H PRN pain 5 days #14 tabs 11/06/22 [Rx Last Taken Unknown] metronidazole 500 mg tablet 500 mg PO TID 10 days #30 tabs 11/06/22 [Rx Last Taken Unknown] Allergy/AdvReac Type Severity Reaction Status Date / Time morphine AdvReac Nausea Verified 01/29/23 09:39 Surgical History Gastric bypass status for obesity H/O foot surgery Social History Smoking Status: Never smoker ROS ROS ED ROS Narrative Left lower quadrant abdominal pain. Nausea. Constipation. Review of Systems ROS Unobtainable: Denies due to encephalopathy Constitutional Constitutional ED: Denies chills or fever(s) ENT ENT ED: Denies ear pain Cardiovascular Cardiovascular: Denies chest pain Respiratory/Chest Respiratory/Chest: Denies cough or dyspnea Gastrointestinal Gastrointestinal: Reports abdominal pain, constipation and nausea; Denies diarrhea, melena or vomiting Genitourinary Genitourinary ED: Denies dysuria or hematuria Musculoskeletal Musculoskeletal: Denies arthralgias Integumentary Denies abscess Neurologic Neurologic: Denies headache(s) Psychiatric Psychiatric: Denies anxiety Endocrine Endocrinology: Denies polydipsia Hematologic/Lymphatic Hematologic/Lymphatic: Denies easy bleeding Allergic/Immunologic Allergic/Immunologic ED: Denies mouth swelling EXAM Physical Exam Narrative Exam Narrative: 62-year-old female no acute distress. Vital signs stable afebrile. HEENT exam unremarkable. Lungs clear. Heart regular rhythm. Abdomen soft nondistended normal bowel sounds no peritoneal signs. Tender left lower quadrant only. Right upper and right lower quadrant unremarkable. No hernia or mass. No pulsatile mass. No signs of obstruction. Back nontender. Moving all 4 extremities. Neurologic exam normal. Const Vital Signs: 01/29/23 09:37 Temperature 97.4 F L Temperature Source Temporal Pulse Rate 76 Respiratory Rate 16 Blood Pressure 154/78 H Blood Pressure Mean 103 Pulse Ox 97 Oxygen Delivery Method Room Air Positive well nourished, well developed and obese; Negative for cachectic, contractures or unkempt General Appearance ED: well developed and NAD; Negative for unkempt, cachectic, contractures or pallor Nutritional Appearance: obese; Negative for cachectic HEENT Reports moist mucous membranes normocephalic and atraumatic; Negative for trauma or tenderness Eyes PERRL and EOMs intact bilaterally General Eye ED: Negative for pale conjunctiva or scleral icterus Neck no lymphadenopathy, supple and no JVD General: Negative for tenderness Carotids: Negative for other Lymph Lymphatic: Negative for other Resp normal respiratory effort and clear to auscultation bilaterally Effort and Inspection: Negative for respiratory distress Auscultation: Negative for rales, rhonchi or wheezes Cardio regular rate, regular rhythm, S1 normal heart sound, S2 normal heart sound and no murmurs Rate: Negative for bradycardia or tachycardic GI non-distended and no masses; Negative for non-tender Inspection: Negative for abdominal distention Auscultation: normoactive bowel sounds Palpation: soft and tender; Negative for guarding Back/Spine no CVA tenderness General Back: Negative for CVA tenderness Cervical Spine: Negative for cervical spine tenderness Thoracic Spine / Upper Back: Negative for thoracic spinal tenderness Lumbar Spine / Lower Back: Negative for lumbar spinal tenderness Extremity full ROM General Extremety ED: Negative for edema or tenderness General Extremity: Negative for edema Neuro CN's II-XII intact bilaterally and moves all extremities Sensorium / Orientation: alert, oriented to person, oriented to place and oriented to time; Negative for orientation impaired or confused Motor Exam: strength 5/5 throughout Psych mental status grossly normal and thought process normal Appearance: Negative for unkempt Attitude: No agitated Mood & Affect: Negative for depressed, anxious or tearful Skin no wounds General Skin Exam: Negative for jaundice or pallor Lesions: no lesions Rashes: no rashes Trauma: Negative for abrasion Nails: Negative for discolored MDM MDM MDM Narrative Medical decision making narrative: 62-year-old female left lower quadrant abdominal pain history of diverticulitis. Clinically I suspect this to be diverticulitis. She has no urinary symptoms. Screening labs and CAT scan to be obtained. She will be treated with Dilaudid and Zofran for pain and nausea. Repeat exam patient is doing much better at 1140. We went over test results including her contained pneumo peritoneum. No abscess. She will require close follow-up to ensure this is improving. Last time she did well on Cipro and Flagyl I will put her on 14 days worth this time. Also on pain medications. History & Record Review Discussion w/independent historian: Patient Lab Data Attestation: I reviewed the patient's lab results. Lab results narrative: CBC normal. White count 8.5. H&H 13.8 and 43. Platelets 229. Electrolytes unremarkable gap of 2 BUN of 20 creatinine 0.8. Glucose 88. Abdominal CAT scan shows diverticulitis. Labs: Laboratory Results - last 24 hr 01/29/23 01/29/23 10:14 10:14 WBC 8.5 RBC 4.75 Hgb 13.8 Hct 43.6 MCV 91.8 MCH 29.1 MCHC 31.7 L RDW Std Deviation 49.0 H RDW Coeff of [place] 14.5 Plt Count 229 MPV 11.6 Immature Gran % (Auto) 0.100 Neut % (Auto) 69.4 Lymph % (Auto) 25.9 [place] % (Auto) 4.3 Eos % (Auto) 0.1 Baso % (Auto) 0.2 Absolute Neuts (auto) 5.9 Absolute Lymphs (auto) 2.21 Nucleated RBC % 0 Sodium 138 Potassium 4.0 Chloride 106 Carbon Dioxide 30.0 Anion Gap 2 L BUN 20 H Creatinine 0.88 Estim Creat Clear Calc 53.10 Est GFR (MDRD) Af Amer 84 Est GFR (MDRD) Non-Af 69 BUN/Creatinine Ratio 22.7 H Glucose 88 Calcium 9.5 Radiography Diagnostic Testing: Clinical Impression(s) from Imaging Studies Abdomen/Pelvis CT 01/29/23 10:11 IMPRESSION: 1. Acute diverticulitis of the lower descending colon with small contained pneumoperitoneum surrounded by inflammatory changes of the pericolic fat but no abscess at this time. 2. No other additional findings or changes. Electronically Signed: Julio Christian MD at 11:25 EDT , Discharge Plan Triage Chief Complaint: Abd Pain ED Provider: Maurisio Lobo Dx/Rx/DC Orders Prescriptions: No Action multivitamin [Multiple Vitamins] 1 EACH tablet 1 ea PO DAILY ascorbic acid (vitamin C) [Vitamin C] 1,000 MG tablet 1,000 mg PO DAILY biotin 5 MG capsule 5 mg PO DAILY dextroamphetamine-amphetamine [Adderall] 30 MG tablet 15 mg PO BID levothyroxine [Synthroid] 50 MCG tablet 50 mcg PO DAILY losartan-hydrochlorothiazide 1 EACH tablet 1 ea PO DAILY desvenlafaxine succinate [Pristiq] 50 MG tablet 50 mg PO DAILY ferrous gluconate 236 MG tablet 65 mg PO DAILY L.acidoph, paracasei,B. lactis 1 EACH capsule 1 ea PO DAILY Cetirizine Hcl [Zyrtec] 10 MG tablet 10 mg PO DAILY ciprofloxacin HCl [Cipro] 500 mg tablet 500 mg PO BID 10 Days Qty: 20 0RF metronidazole 500 mg tablet 500 mg PO TID 10 Days Qty: 30 0RF hydrocodone-acetaminophen 5-325 mg tablet 1 tab PO Q4H PRN (Reason: pain) 5 Days Qty: 14 0RF Primary Care Provider: Brandon Umaña Referrals: Brandon Umaña MD [Primary Care Provider] -
--- NOTE | 2023-01-29 10:11 | CT_ITS ---
We are attempting to reach an attending provider to discuss findings. An addendum with communication details will be sent when the communication is complete. EXAM: CT ABDOMEN AND PELVIS WITH INTRAVENOUS CONTRAST CLINICAL INDICATION: LLQ abd pain. Hx of tics TECHNIQUE: Helically acquired images were obtained of the abdomen and pelvis with intravenous contrast. This CT exam was performed using one or more of the following dose reduction techniques: automated exposure control, adjustment of the mA and/or kV according to patient size, and/or use of iterative reconstruction technique. This report was created using [employer] technology. CONTRAST: IV 100mL [id number] RADIATION DOSE: CTDIvol = 16.65 mGy, DLP = 1191.81 mGy-cm COMPARISON: CT abdomen and pelvis with contrast 11/06/2022. FINDINGS: LOWER THORAX: Unremarkable. Lung bases are clear. No cardiomegaly. No significant pericardial effusion. ABDOMEN: LIVER: Unremarkable. Homogeneous. No focal mass. GALLBLADDER AND BILE DUCTS: Unremarkable. No calcified gallstones. No gallbladder distention or wall edema. No intra- or extrahepatic biliary ductal dilation. PANCREAS: Unremarkable. No focal cystic or solid mass. SPLEEN: Unremarkable. Normal size without focal cystic or solid mass. ADRENALS: Unremarkable. No nodules. KIDNEYS AND URETERS: Unremarkable. Normal renal size and position. No hydronephrosis. STOMACH AND BOWEL: Small diverticula with intramural thickening in the lower descending colon with microperforation and small gas bubbles surrounded by haziness of the pericolic fat. This is consistent with acute diverticulitis. No diverticular abscess at this time. Surgical sutures in the left side of the small bowel were present previously. No stomach or bowel distention. PELVIS: APPENDIX: Normal. BLADDER: Unremarkable. REPRODUCTIVE: Unremarkable as visualized. No mass. ABDOMEN and PELVIS: INTRAPERITONEAL SPACE: Unremarkable. No ascites or other fluid collection. No free air. BONES/JOINTS: Unremarkable. No suspicious lytic or blastic abnormality. SOFT TISSUES: Unremarkable. No discrete abdominal or pelvic wall hernia. VASCULATURE: Unremarkable. Abdominal aorta is non-dilated. LYMPH NODES: Unremarkable. No enlarged lymph nodes. CT/Abdomen/Pelvis W IV Cont ONLY IMPRESSION: 1. Acute diverticulitis of the lower descending colon with small contained pneumoperitoneum surrounded by inflammatory changes of the pericolic fat but no abscess at this time. 2. No other additional findings or changes. Electronically Signed: Julio Christian MD at 11:25 EDT ,
[2023-01-29 10:21] LABS: Absolute Lymphocyte Count 2.21 X10^3/uL (0.83-4.51); Absolute Neutrophil Count 5.9 X10^3/uL (2.0-7.7); Basophil# 0.02 X10^3/uL; Basophil% 0.2 % (0-1); Eosinophil# 0.01 X10^3/uL; Eosinophils% 0.1 % (0-5); Hematocrit 43.6 % (37-47); Hemoglobin 13.8 g/dL (12.0-15.0); Lymphocyte # 2.21 X10^3/ul (0.83-4.51); Lymphocyte % 25.9 % (19-41); Mean Corp Hgb Conc 31.7 g/dL (32-36); Mean Corpuscular Hgb 29.1 pg (27.0-32.0); Mean Corpuscular Volume 91.8 fL (81-99); Mean Platelet Vol. 11.6 fl (6.2-12.0); Monocyte# 0.37 X10^3/uL; Monocyte% 4.3 % (0-10); NRBC Flagged by Analyzer 0 % (0-5); Neutrophil # 5.92 X10^3/uL (2.7-7.7); Neutrophil % 69.4 % (47-70); Platelet Count 229 K/mm3 (150-450); RBC Distribution Width CV 14.5 % (11.6-14.6); Red Blood Count 4.75 M/mm3 (4.2-5.4); White Blood Count 8.5 K/mm3 (4.4-11.0)
[2023-01-29] MEDS: Ondansetron 4 MG/2 ML Vial IV ×2 (10:28→12:07)
[2023-01-29] MEDS: HYDROmorphone 1 MG/ML Syringe IV (10:29)
[2023-01-29 10:36] LABS: Anion Gap 2 (5-15); BUN 20 mg/dL (7-18); BUN/Creat Ratio 22.7 RATIO (10-20); Calcium,Total 9.5 mg/dL (8.5-10.1); Chloride 106 mmol/L (98-107); Creatinine, Serum 0.88 mg/dL (0.55-1.02); EST Glomerular Filtration Rate 69 mL/min (>60); Est Glom Filt Rate - Afr Amer 84 mL/min (>60); Glucose 88 mg/dL (74-106); Sodium Level 138 mmol/L (136-145)
[2023-01-29 12:01] VITALS: BP 93/56; PULSE 66; RESP 16; O2SAT 98
[2023-01-29 12:12] VITALS: BP 125/53; PULSE 74; RESP 18; O2SAT 96
[2023-01-29 12:23] VITALS: BP 122/48
== END 2023-01-29 12:23 | disposition home or self-care (01) ==
PROVIDERS: Emergency Provider Emergency Medicine; PCP Family Medicine; Visit Provider Emergency Medicine
DX: R10.9 Unspecified abdominal pain (principal); I10 Essential (primary) hypertension; R11.2 Nausea with vomiting, unspecified; E66.9 Obesity, unspecified; Z87.19 Personal history of other diseases of the digestive system
CPT/HCPCS: 74177; 80048; 85025; 96374; 96375; 96376; 99283; Q9967; A4216; J2405

== ENCOUNTER → 2023-02-13 | Outpatient (CLI) | payer OTHER, SELFPAY ==
[2023-02-13 15:15] LABS: Absolute Lymphocyte Count 2.54 X10^3/uL (0.83-4.51); Absolute Neutrophil Count 4.2 X10^3/uL (2.0-7.7); Basophil# 0.05 X10^3/uL; Basophil% 0.7 % (0-1); Hematocrit 45.4 % (37-47); Hemoglobin 13.8 g/dL (12.0-15.0); Lymphocyte # 2.54 X10^3/ul (0.83-4.51); Lymphocyte % 34.5 % (19-41); Mean Corp Hgb Conc 30.4 g/dL (32-36); Mean Corpuscular Hgb 27.9 pg (27.0-32.0); Mean Corpuscular Volume 91.9 fL (81-99); Mean Platelet Vol. 11.7 fl (6.2-12.0); Monocyte# 0.56 X10^3/uL; Monocyte% 7.6 % (0-10); NRBC Flagged by Analyzer 0 % (0-5); Neutrophil # 4.16 X10^3/uL (2.7-7.7); Neutrophil % 56.5 % (47-70); Platelet Count 348 K/mm3 (150-450); RBC Distribution Width CV 15.1 % (11.6-14.6); RBC Distribution Width SD 50.9 fl (35.1-43.9); Red Blood Count 4.94 M/mm3 (4.2-5.4); White Blood Count 7.4 K/mm3 (4.4-11.0)
[2023-02-13 15:41] LABS: ALB/GLOB Ratio 1.1 RATIO (0.9-2.4); AST(SGOT) 30 U/L (15-37); Alanine Aminotransfer ALT/SGPT 24 U/L (13-56); Albumin, Serum 3.8 g/dL (3.2-5.0); Alkaline Phosphatase 68 U/L (45-117); Anion Gap 5 (5-15); BUN 19 mg/dL (7-18); Calcium,Total 9.8 mg/dL (8.5-10.1); Chloride 105 mmol/L (98-107); Creatinine, Serum 0.68 mg/dL (0.55-1.02); EST Glomerular Filtration Rate 94 mL/min (>60); Est Glom Filt Rate - Afr Amer 113 mL/min (>60); Globulin 3.4 g/dL (2.2-4.2); Glucose 95 mg/dL (74-106); Potassium 4.7 mmol/L (3.5-5.1); Protein, Total 7.2 g/dL (6.4-8.2); Sodium Level 138 mmol/L (136-145)
== END | disposition home or self-care (01) ==
LOC: MTLAB 12:38
PROVIDERS: PCP Family Medicine; Referring Provider Family Medicine; Visit Provider Family Medicine
DX: K57.32 Diverticulitis of large intestine without perforation or abscess without bleeding (principal)
CPT/HCPCS: 36415; 80053; 85025

== ENCOUNTER 2023-03-05 10:21 | Inpatient (IN) | payer OTHER, SELFPAY ==
[2023-03-05 10:21] VITALS: BP 140/79; PULSE 76; RESP 18; TEMP 36.5; O2SAT 100; BMI 38.7
--- NOTE | 2023-03-05 10:44 | CT_ITS ---
STUDY: CT ABDOMEN AND PELVIS WITHOUT CONTRAST REASON FOR EXAM: Female, 62 years old. Pain RADIATION DOSAGE (If Supplied By Facility): CTDIvol = ( 22.42 ) mGy, DLP = ( 1254.59 ) mGycm TECHNIQUE: Transaxial images were obtained from the dome of the diaphragm to the symphysis pubis without oral contrast, and without intravenous contrast. Sagittal and coronal images were reconstructed. Individualized dose optimization techniques were used for this CT. COMPARISON: 01/29/2023 FINDINGS: The visualized lung bases are unremarkable. The visualized portions of the heart are within normal limits. Normal liver. Normal gallbladder and extrahepatic biliary system. Normal spleen. Normal pancreas. Normal bilateral adrenal glands. Normal right kidney. Normal left kidney. Postsurgical changes noted in the stomach and a bowel loop in the left upper quadrant without anastomotic leak. Normal small intestine. Scattered colonic diverticula. Again identified within the left lower quadrant is acute diverticulitis. It has worsened since the previous study with evidence of microperforation and extensive pericolonic inflammatory stranding. No organized abscess cavity is noted. A neoplastic process could also cause this appearance and needs to be excluded with CT inflammation has resolved. The appendix is visualized and appears normal. Appendix seen on coronal recon images 67-74 Normal abdominal aorta. Normal inferior vena cava. Normal retroperitoneum. Normal urinary bladder. Normal abdominal wall. Normal osseous structures. CT/Abdomen/Pelvis without Cont IMPRESSION: Worsening acute diverticulitis involving the distal descending and proximal sigmoid colon with progression/worsening of microperforation with multiple bubbles of extraluminal gas noted. No organized abscess cavity noted. Surgical consultation recommended Neoplastic process could also cause this appearance and needs to be excluded once the acute inflammation has resolved. Stable postsurgical changes noted in the stomach and bowel loop in the left upper quadrant, no anastomotic leak. No suspicious solid organ abnormality Normal appendix visualized Electronically Signed: Tashi Mayorga MD at 11:59 EDT ,
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
[2023-03-05 11:01] LABS: Absolute Lymphocyte Count 1.91 X10^3/uL (0.83-4.51); Absolute Neutrophil Count 6.6 X10^3/uL (2.0-7.7); Basophil# 0.02 X10^3/uL; Basophil% 0.2 % (0-1); Hemoglobin 13.6 g/dL (12.0-15.0); Lymphocyte # 1.91 X10^3/ul (0.83-4.51); Lymphocyte % 20.5 % (19-41); Mean Corp Hgb Conc 32.4 g/dL (32-36); Mean Corpuscular Hgb 29.4 pg (27.0-32.0); Mean Corpuscular Volume 90.7 fL (81-99); Mean Platelet Vol. 11.3 fl (6.2-12.0); Monocyte# 0.72 X10^3/uL; Monocyte% 7.7 % (0-10); NRBC Flagged by Analyzer 0 % (0-5); Neutrophil # 6.62 X10^3/uL (2.7-7.7); Neutrophil % 71.3 % (47-70); Platelet Count 199 K/mm3 (150-450); RBC Distribution Width CV 14.9 % (11.6-14.6); RBC Distribution Width SD 49.3 fl (35.1-43.9); Red Blood Count 4.63 M/mm3 (4.2-5.4); White Blood Count 9.3 K/mm3 (4.4-11.0)
[2023-03-05] MEDS: 0.9% Normal Saline 1,000 ML 125 ML IV ×2 (11:04→18:23)
[2023-03-05 11:07] LABS: Bacteria 0 SEEN /hpf (None Seen); Mucous, Urine 0 SEEN /hpf (<or=2+); Red Blood Cells-Urine 0 SEEN /hpf (0-5)
[2023-03-05 11:13] LABS: Color, Urine Yellow (Yellow); Glucose, Dipstick Normal (Normal); Ketone-Dipstick Negative (Negative); Leukocyte Esterase-Dipstick 100 /ul (Negative); Nitrite-Dipstick Negative (Negative); Occult Blood-Urine Negative /ul (Negative); Protein-Dipstick Negative (Negative); Specific Gravity, Urine 1.015 (1.002-1.030); Urine Bilirubin Dipstick Negative (Negative); Urine Clarity Sl. Cloudy (Clear); Urine Urobilinogen Normal (Normal)
[2023-03-05 11:22] LABS: Squamous Epithelial Cells - UA 0-5 SEEN /hpf (5-10); White Blood Cells 0-5 SEEN /hpf (0-5)
[2023-03-05 11:22] LABS: Anion Gap 5 (5-15); BUN 19 mg/dL (7-18); BUN/Creat Ratio 26.1 RATIO (10-20); Calcium,Total 9.9 mg/dL (8.5-10.1); Chloride 105 mmol/L (98-107); Creatinine, Serum 0.73 mg/dL (0.55-1.02); EST Glomerular Filtration Rate 86 mL/min (>60); Est Glom Filt Rate - Afr Amer 104 mL/min (>60); Estimated Creatinine Clearance 64.01 ml/min; Glucose 87 mg/dL (74-106); Sodium Level 139 mmol/L (136-145)
[2023-03-05] MEDS: fentaNYL 100 MCG/2 ML Ampul 50 MCG IV (11:40)
[2023-03-05] MEDS: Ondansetron 4 MG/2 ML Vial IV (11:40)
[2023-03-05] MEDS: Ciprofloxacin 400 MG/200 ML BAG 200 MG IV (12:09)
[2023-03-05 12:48] VITALS: BP 138/59; PULSE 80; RESP 16; TEMP 37; O2SAT 98
[2023-03-05 13:30] VITALS: BMI 39.4
[2023-03-05 13:49] VITALS: BP 129/74; PULSE 68; RESP 16; TEMP 36.4; O2SAT 97
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
--- NOTE | 2023-03-05 16:40 | PCM.HP.STD ---
[facility] - General General Date of Admission: 03/05/23 Date of Service: 03/05/23 Chief Complaint: Left lower and mid lower abdominal pain x2 to [facility] Narrative BIBI AGUILLON, is a 62 F who presents to the emergency room at [facility] for evaluation of left lower quadrant abdominal pain and mid lower quadrant abdominal pain x2 days. Patient denies any diarrhea, she denies any blood in the stool, she denies any vomiting. Patient was recently diagnosed with diverticulitis in January 2023 and given a prescription for oral antibiotics from the emergency room. Work-up in the emergency room today included labs which revealed a normal white blood cell count, patient's chemistry panel was remarkable for BUN of 19. Patient urinalysis was unremarkable. CT of the abdomen and pelvis today showed worsening acute diverticulitis involving the distal descending and proximal sigmoid colon with worsening of microperforation with multiple bubbles of extraluminal gas noted. No abscess cavity was noted. General surgery was contacted and requested hospital service admit the patient, patient will be admitted for acute diverticulitis with microperforation, she will be given IV antibiotics and seen by general surgery. [facility] Medical History Depression History of diverticulitis HTN (hypertension) Home Medications desvenlafaxine succinate 50 mg tablet,extended release 24 hr (Pristiq) 50 mg PO DAILY ANTIDEPRESSANT 07/17/18 [History Last Taken 03/05/23] dextroamphetamine-amphetamine 30 mg tablet (Adderall) 15 mg PO BID ADHD 07/17/18 [History Last Taken 03/03/23] cetirizine 10 mg tablet 10 mg PO DAILY ALLERGIES 03/05/23 [History Last Taken 03/04/23] losartan 25 mg tablet 25 mg PO DAILY BP 03/05/23 [History Last Taken 03/05/23] Allergy/AdvReac Type Severity Reaction Status Date / Time morphine AdvReac Nausea Verified 01/29/23 09:39 Surgical History Gastric bypass status for obesity H/O foot surgery Social History Smoking Status: Never smoker ROS Constitutional Constitutional: Denies anorexia, change in weight, chills, fatigue, fever(s), malaise, night sweats or weakness Eyes Eyes: Denies blurry vision, change in vision, discharge from eye(s) or eye pain Cardiovascular Cardiovascular: Denies chest pain, claudication, dyspnea on exertion, edema, lightheadedness or palpitations Respiratory/Chest Respiratory/Chest: Denies cough, hemoptysis, shortness of breath at rest or shortness of breath with exertion Gastrointestinal Gastrointestinal: Reports abdominal pain; Denies constipation, diarrhea, dyspepsia, hematemesis, hematochezia, melena, nausea or vomiting Genitourinary Genitourinary: Denies difficulty urinating, dysuria, hematuria, urinary frequency, urinary hesitancy, urinary incontinence or urinary urgency Musculoskeletal Musculoskeletal: Denies back pain, joint pain, joint stiffness, joint swelling, myalgias or neck pain Neurologic Neurologic: Denies abnormal gait, abnormal speech, dizziness, focal weakness, headache(s), loss of vision, numbness, other visual disturbances, paresthesias, syncope or tingling Psychiatric Psychiatric: Denies anxiety, cognitive impairment, depression, irritability, mood swings or suicidal ideation Endocrine Endocrinology: Denies change in body appearance, cold intolerance, excessive sweating, heat intolerance, polydipsia or polyuria Hematologic/Lymphatic Hematologic/Lymphatic: Denies none, anemia, easy bleeding, easy bruising or lymphadenopathy Allergic/Immunologic Allergic/Immunologic: Denies rhinitis, urticaria, eczemia or asthma Vital Signs Vital Signs Vital Signs: 03/05/23 10:21 03/05/23 12:48 03/05/23 13:49 Temperature 97.7 F L 98.6 F 97.5 F L Temperature Source Temporal Oral Oral Pulse Rate 76 80 68 Respiratory Rate 18 16 16 Respiratory Effort Respiratory Depth Respiratory Pattern Blood Pressure 140/79 H 138/59 H 129/74 H Blood Pressure Mean 99 85 92 Blood Pressure Source Monitor Blood Pressure Position Semi-Fowlers Blood Pressure Location Left Arm Pulse Ox 100 98 97 Oxygen Delivery Method Room Air Room Air Room Air 03/05/23 13:50 Temperature Temperature Source Pulse Rate Respiratory Rate Respiratory Effort Normal Non-Labored Respiratory Depth Normal Respiratory Pattern Normal Blood Pressure Blood Pressure Mean Blood Pressure Source Blood Pressure Position Blood Pressure Location Pulse Ox Oxygen Delivery Method Room Air Weight Weight: 97.8 kg Body Mass Index (BMI) 39.4 Physical Exam Const alert, oriented x3, no apparent distress and healthy appearing Constitutional Narrative: Patient does not appear in distress, she does not appear to be unwell General Appearance: cooperative, well kempt and well developed Orientation / Consciousness: awake, oriented to person, oriented to place and oriented to time HEENT normocephalic, head/scalp atraumatic, hearing grossly normal bilaterally and moist oral mucous membranes Eyes PERRL, EOMs intact bilaterally and conjunctivae normal Neck supple, no JVD, thyroid normal and no carotid bruits General: trachea midline Resp normal respiratory effort, no retractions, no use of accessory muscles and clear to auscultation bilaterally Auscultation: Negative for rales, rhonchi or wheezes Cardio regular rate, regular rhythm, S1 normal heart sound, S2 normal heart sound, no murmurs, no rub and no gallops GI GI Narrative: Patient's abdomen is nondistended, bowel sounds are present in all 4 quadrants, there is abdominal tenderness to palpation the left lower quadrant and the suprapubic area, no rebound abdominal tenderness was noted. Extremity no clubbing, cyanosis or edema Skin no rashes or lesions noted General Skin Exam: no breakdown Neuro oriented x3, CN's II-XII intact bilaterally, no focal motor deficits and no sensory deficits noted Sensorium / Orientation: awake, alert, oriented to person, oriented to place and oriented to time Speech: speech normal Psych affect normal Results Lab / Micro Data Result Diagrams: 03/05/23 10:55 03/05/23 10:55 Labs: Laboratory Results - last 24 hr 03/05/23 10:55: WBC 9.3, RBC 4.63, Hgb 13.6, Hct 42.0, MCV 90.7, MCH 29.4, MCHC 32.4, RDW Std Deviation 49.3 H, RDW Coeff of [place] 14.9 H, Plt Count 199, MPV 11.3, Immature Gran % (Auto) 0.300, Neut % (Auto) 71.3 H, Lymph % (Auto) 20.5, [place] % (Auto) 7.7, Eos % (Auto) 0.0, Baso % (Auto) 0.2, Absolute Neuts (auto) 6.6, Absolute Lymphs (auto) 1.91, Nucleated RBC % 0 03/05/23 10:55: Sodium 139, Potassium 4.0, Chloride 105, Carbon Dioxide 29.0, Anion Gap 5, BUN 19 H, Creatinine 0.73, Estim Creat Clear Calc 64.01, Est GFR (MDRD) Af Amer 104, Est GFR (MDRD) Non-Af 86, BUN/Creatinine Ratio 26.1 H, Glucose 87, Calcium 9.9 03/05/23 11:04: Urine Color Yellow, Urine Clarity Sl. Cloudy, Urine pH 6.0, Ur Specific [place] 1.015, Urine Protein Negative, Urine Glucose (UA) Normal, Urine Ketones Negative, Urine Occult Blood Negative, Urine Nitrite Negative, Urine Bilirubin Negative, Urine Urobilinogen Normal, Ur Leukocyte Esterase 100 H, Urine RBC 0 SEEN, Urine WBC 0-5 SEEN, Ur Squamous Epith Cells 0-5 SEEN, Urine Bacteria 0 SEEN, Urine Mucus 0 SEEN Radiology Impression Abdomen/Pelvis CT 03/05/23 10:44 IMPRESSION: Worsening acute diverticulitis involving the distal descending and proximal sigmoid colon with progression/worsening of microperforation with multiple bubbles of extraluminal gas noted. No organized abscess cavity noted. Surgical consultation recommended Neoplastic process could also cause this appearance and needs to be excluded once the acute inflammation has resolved. Stable postsurgical changes noted in the stomach and bowel loop in the left upper quadrant, no anastomotic leak. No suspicious solid organ abnormality Normal appendix visualized Electronically Signed: Tashi Mayorga MD at 11:59 EDT , Assessment & Plan Assessment/Plan (1) Perforation of sigmoid colon due to diverticulitis: PLAN: Plan 1. Acute diverticulitis with microperforation of the colon-patient will be admitted to [facility], she will be placed on IV Zosyn, she will be seen in consultation by general surgery, she will be n.p.o. except for medications. #2 chronic depression-patient will be kept on her outpatient antidepressant #3 essential hypertension-patient will remain on Cozaar #4 ADHD-patient is on Adderall currently, she will be able to take her home medication Total clinical time spent by myself addressing the patient's medical issues, reviewing all of her data, and collaborating with patient's care team: 55 minutes Charges/Coding Visit Charges Inpatient E&M: 48164 Init Hosp L2
[2023-03-05] MEDS: HYDROcodone Bitartrate/Apap 5/325 Tablet PO (18:23)
[2023-03-05] MEDS: 0.9% Saline Lock 10 ML Syringe IV (18:23)
[2023-03-05 21:00] VITALS: BP 141/58; PULSE 62; RESP 18; TEMP 36.7; O2SAT 95
[2023-03-06] MEDS: 0.9% Normal Saline 1,000 ML 125 ML IV ×3 (01:59→17:17)
[2023-03-06 04:00] VITALS: BP 109/54; PULSE 80; RESP 18; TEMP 36.6; O2SAT 97
[2023-03-06 05:55] LABS: Absolute Lymphocyte Count 2.15 X10^3/uL (0.83-4.51); Absolute Neutrophil Count 4.1 X10^3/uL (2.0-7.7); Basophil# 0.02 X10^3/uL; Basophil% 0.3 % (0-1); Eosinophil# 0.01 X10^3/uL; Eosinophils% 0.1 % (0-5); Hematocrit 37.3 % (37-47); Hemoglobin 11.7 g/dL (12.0-15.0); Lymphocyte # 2.15 X10^3/ul (0.83-4.51); Lymphocyte % 30.5 % (19-41); Mean Corp Hgb Conc 31.4 g/dL (32-36); Mean Corpuscular Hgb 28.6 pg (27.0-32.0); Mean Corpuscular Volume 91.2 fL (81-99); Mean Platelet Vol. 11.9 fl (6.2-12.0); Monocyte# 0.76 X10^3/uL; Monocyte% 10.8 % (0-10); NRBC Flagged by Analyzer 0 % (0-5); Neutrophil # 4.08 X10^3/uL (2.7-7.7); Platelet Count 163 K/mm3 (150-450); RBC Distribution Width CV 14.9 % (11.6-14.6); RBC Distribution Width SD 50.1 fl (35.1-43.9); Red Blood Count 4.09 M/mm3 (4.2-5.4)
[2023-03-06 06:34] LABS: Anion Gap 7 (5-15); BUN 14 mg/dL (7-18); BUN/Creat Ratio 19.6 RATIO (10-20); Calcium,Total 8.7 mg/dL (8.5-10.1); Chloride 108 mmol/L (98-107); Creatinine, Serum 0.72 mg/dL (0.55-1.02); EST Glomerular Filtration Rate 88 mL/min (>60); Est Glom Filt Rate - Afr Amer 107 mL/min (>60); Glucose 101 mg/dL (74-106); Potassium 3.6 mmol/L (3.5-5.1); Sodium Level 141 mmol/L (136-145)
[2023-03-06 08:28] VITALS: BP 127/60; PULSE 91; RESP 16; TEMP 36.9; O2SAT 94
[2023-03-06] MEDS: Losartan Potassium 25 MG Tablet PO (08:48)
--- NOTE | 2023-03-06 09:50 | PN.SURG_ITS ---
Subjective Subjective Patient's abdominal pain is improved. Patient white blood cell count is 7. Objective Data Objective Data Vital Signs: Vital Signs Temp Pulse Resp BP Pulse Ox O2 Del Method 98.4 F 91 16 127/60 H 94 Room Air 03/06/23 08:28 03/06/23 08:28 03/06/23 08:28 03/06/23 08:28 03/06/23 08:28 03/06/23 08:28 Oxygen Delivery Method Room Air Weight: 215 lb 9.793 oz Body Mass Index (BMI) 39.4 Intake & Output: Intake and Output for Last 24 Hours 03/04/23 03/05/23 03/06/23 23:59 23:59 23:59 Intake Total 1145.42 / 1145.42 Balance 1145.42 / 1145.42 Lab / Micro Data Result Diagrams: 03/06/23 05:31 03/06/23 05:31 Labs: Laboratory Results - last 24 hr 03/05/23 10:55: WBC 9.3, RBC 4.63, Hgb 13.6, Hct 42.0, MCV 90.7, MCH 29.4, MCHC 32.4, RDW Std Deviation 49.3 H, RDW Coeff of [place] 14.9 H, Plt Count 199, MPV 11.3, Immature Gran % (Auto) 0.300, Neut % (Auto) 71.3 H, Lymph % (Auto) 20.5, [place] % (Auto) 7.7, Eos % (Auto) 0.0, Baso % (Auto) 0.2, Absolute Neuts (auto) 6.6, Absolute Lymphs (auto) 1.91, Nucleated RBC % 0 03/05/23 10:55: Sodium 139, Potassium 4.0, Chloride 105, Carbon Dioxide 29.0, Anion Gap 5, BUN 19 H, Creatinine 0.73, Estim Creat Clear Calc 64.01, Est GFR (MDRD) Af Amer 104, Est GFR (MDRD) Non-Af 86, BUN/Creatinine Ratio 26.1 H, Glucose 87, Calcium 9.9 03/05/23 11:04: Urine Color Yellow, Urine Clarity Sl. Cloudy, Urine pH 6.0, Ur Specific [place] 1.015, Urine Protein Negative, Urine Glucose (UA) Normal, Urine Ketones Negative, Urine Occult Blood Negative, Urine Nitrite Negative, Urine Bilirubin Negative, Urine Urobilinogen Normal, Ur Leukocyte Esterase 100 H, Urine RBC 0 SEEN, Urine WBC 0-5 SEEN, Ur Squamous Epith Cells 0-5 SEEN, Urine Bacteria 0 SEEN, Urine Mucus 0 SEEN 03/06/23 05:31: Sodium 141, Potassium 3.6, Chloride 108 H, Carbon Dioxide 26.0, Anion Gap 7, BUN 14, Creatinine 0.72, Estim Creat Clear Calc 64.90, Est GFR (MDRD) Af Amer 107, Est GFR (MDRD) Non-Af 88, BUN/Creatinine Ratio 19.6, Glucose 101, Calcium 8.7 03/06/23 05:31: WBC 7.0, RBC 4.09 L, Hgb 11.7 L, Hct 37.3, MCV 91.2, MCH 28.6, MCHC 31.4 L, RDW Std Deviation 50.1 H, RDW Coeff of [place] 14.9 H, Plt Count 163, MPV 11.9, Immature Gran % (Auto) 0.300, Neut % (Auto) 58.0, Lymph % (Auto) 30.5, [place] % (Auto) 10.8 H, Eos % (Auto) 0.1, Baso % (Auto) 0.3, Absolute Neuts (auto) 4.1, Absolute Lymphs (auto) 2.15, Nucleated RBC % 0 Radiography Diagnostic Testing: Radiology Impression Abdomen/Pelvis CT 03/05/23 10:44 IMPRESSION: Worsening acute diverticulitis involving the distal descending and proximal sigmoid colon with progression/worsening of microperforation with multiple bubbles of extraluminal gas noted. No organized abscess cavity noted. Surgical consultation recommended Neoplastic process could also cause this appearance and needs to be excluded once the acute inflammation has resolved. Stable postsurgical changes noted in the stomach and bowel loop in the left upper quadrant, no anastomotic leak. No suspicious solid organ abnormality Normal appendix visualized Electronically Signed: Tashi Mayorga MD at 11:59 EDT , Physical Exam Const oriented x3 and no apparent distress Resp normal respiratory effort Cardio regular rate GI soft to palpation GI Narrative: Mild tenderness in the left lower quadrant, right lower quadrant, left upper quadrant, no rebound or guarding Assessment & Plan Assessment/Plan (1) Perforation of sigmoid colon due to diverticulitis: PLAN: Plan Patient's pain is improving with conservative management with IV Zosyn. We will continue okay for sips and chips. Would not plan to advance diet until pain has resolved. Also plan for repeat CT prior to patient discharge?soonest I recommen d CT would be Monday. Discussed with patient and her . Arelis Sandoval M.D. Pager: [phone] [facility] [address] [place] [address], [facility], [address] [place] [address] Office: [phone] Charges/Coding Visit Charges Inpatient E&M: 61836 Subs Hosp L2
--- NOTE | 2023-03-06 10:24 | PN.HOSP_ITS ---
Reason for Visit Reason for Visit: Diagnoses Diverticulitis of large intestine with perforation and abscess without bleeding (03/05/23) Subjective Subjective Patient was seen and examined today, she is afebrile this morning, white blood cell count is normal. Patient does not complain of increased abdominal pain. Objective Data Objective Data Vital Signs: Vital Signs Temp Pulse Resp BP Pulse Ox O2 Del Method 98.4 F 91 16 127/60 H 94 Room Air 03/06/23 08:28 03/06/23 08:28 03/06/23 08:28 03/06/23 08:28 03/06/23 08:28 03/06/23 08:28 Oxygen Delivery Method Room Air Weight: 97.8 kg Body Mass Index (BMI) 39.4 Intake & Output: Intake and Output for Last 24 Hours 03/04/23 03/05/23 03/06/23 23:59 23:59 23:59 Intake Total 1145.42 / 1145.42 Balance 1145.42 / 1145.42 Lab / Micro Data Result Diagrams: 03/06/23 05:31 03/06/23 05:31 Labs: Laboratory Results - last 24 hr 03/05/23 10:55: WBC 9.3, RBC 4.63, Hgb 13.6, Hct 42.0, MCV 90.7, MCH 29.4, MCHC 32.4, RDW Std Deviation 49.3 H, RDW Coeff of [place] 14.9 H, Plt Count 199, MPV 11.3, Immature Gran % (Auto) 0.300, Neut % (Auto) 71.3 H, Lymph % (Auto) 20.5, [place] % (Auto) 7.7, Eos % (Auto) 0.0, Baso % (Auto) 0.2, Absolute Neuts (auto) 6.6, Absolute Lymphs (auto) 1.91, Nucleated RBC % 0 03/05/23 10:55: Sodium 139, Potassium 4.0, Chloride 105, Carbon Dioxide 29.0, Anion Gap 5, BUN 19 H, Creatinine 0.73, Estim Creat Clear Calc 64.01, Est GFR (M DRD) Af Amer 104, Est GFR (MDRD) Non-Af 86, BUN/Creatinine Ratio 26.1 H, Glucose 87, Calcium 9.9 03/05/23 11:04: Urine Color Yellow, Urine Clarity Sl. Cloudy, Urine pH 6.0, Ur Specific [place] 1.015, Urine Protein Negative, Urine Glucose (UA) Normal, Urine Ketones Negative, Urine Occult Blood Negative, Urine Nitrite Negative, Urine Bilirubin Negative, Urine Urobilinogen Normal, Ur Leukocyte Esterase 100 H, Urine RBC 0 SEEN, Urine WBC 0-5 SEEN, Ur Squamous Epith Cells 0-5 SEEN, Urine Bacteria 0 SEEN, Urine Mucus 0 SEEN 03/06/23 05:31: Sodium 141, Potassium 3.6, Chloride 108 H, Carbon Dioxide 26.0, Anion Gap 7, BUN 14, Creatinine 0.72, Estim Creat Clear Calc 64.90, Est GFR (MDRD) Af Amer 107, Est GFR (MDRD) Non-Af 88, BUN/Creatinine Ratio 19.6, Glucose 101, Calcium 8.7 03/06/23 05:31: WBC 7.0, RBC 4.09 L, Hgb 11.7 L, Hct 37.3, MCV 91.2, MCH 28.6, MCHC 31.4 L, RDW Std Deviation 50.1 H, RDW Coeff of [place] 14.9 H, Plt Count 163, MPV 11.9, Immature Gran % (Auto) 0.300, Neut % (Auto) 58.0, Lymph % (Auto) 30.5, [place] % (Auto) 10.8 H, Eos % (Auto) 0.1, Baso % (Auto) 0.3, Absolute Neuts (auto) 4.1, Absolute Lymphs (auto) 2.15, Nucleated RBC % 0 Radiography Diagnostic Testing: Radiology Impression Abdomen/Pelvis CT 03/05/23 10:44 IMPRESSION: Worsening acute diverticulitis involving the distal descending and proximal sigmoid colon with progression/worsening of microperforation with multiple bubbles of extraluminal gas noted. No organized abscess cavity noted. Surgical consultation recommended Neoplastic process could also cause this appearance and needs to be excluded once the acute inflammation has resolved. Stable postsurgical changes noted in the stomach and bowel loop in the left upper quadrant, no anastomotic leak. No suspicious solid organ abnormality Normal appendix visualized Electronically Signed: Tashi Mayorga MD at 11:59 EDT Reading Location ID and State: [facility] / [place] , Service support , Physical Exam Narrative alert, oriented x3, no apparent distress and healthy appearing Constitutional Narrative: Patient does not appear in distress, she does not appear to be unwell General Appearance: cooperative, well kempt and well developed Orientation / Consciousness: awake, oriented to person, oriented to place and oriented to time HEENT normocephalic, head/scalp atraumatic, hearing grossly normal bilaterally and moist oral mucous membranes Eyes PERRL, EOMs intact bilaterally and conjunctivae normal Neck supple, no JVD, thyroid normal and no carotid bruits General: trachea midline Resp normal respiratory effort, no retractions, no use of accessory muscles and clear to auscultation bilaterally Auscultation: Negative for rales, rhonchi or wheezes Cardio regular rate, regular rhythm, S1 normal heart sound, S2 normal heart sound, no murmurs, no rub and no gallops GI GI Narrative: Patient's abdomen is nondistended, bowel sounds are present in all 4 quadrants, patient does not have abdominal tenderness on palpation today.. Extremity no clubbing, cyanosis or edema Skin no rashes or lesions noted General Skin Exam: no breakdown Neuro oriented x3, CN's II-XII intact bilaterally, no focal motor deficits and no sensory deficits noted Sensorium / Orientation: awake, alert, oriented to person, oriented to place and oriented to time Speech: speech normal Psych affect normal Assessment & Plan Assessment/Plan (1) Perforation of sigmoid colon due to diverticulitis: PLAN: Plan 1. Acute diverticulitis with microperforation of the colon-continue antibiotic coverage with Zosyn, patient was seen by general surgery today.. #2 chronic depression-patient will be kept on her outpatient antidepressant #3 essential hypertension-patient will remain on Cozaar #4 ADHD-patient is on Adderall currently, she states she does not need to take this medication during her hospitalization, I will cancel the medication. Patient will be taken off telemetry, I do not feel she needs IV fentanyl and the patient has been taking oral pain meds with adequate control of her pain Total clinical time spent by myself addressing the patient's medical issues, reviewing all of her data, and collaborating with patient's care team: 35 minute s Charges/Coding Visit Charges Inpatient E&M: 32805 Subs Hosp L2
[2023-03-06] MEDS: HYDROcodone Bitartrate/Apap 5/325 Tablet PO (12:37)
[2023-03-06 13:44] VITALS: BP 105/61; PULSE 72; RESP 16; TEMP 36.6; O2SAT 94
[2023-03-06] MEDS: DESVENLAFAXINE SUCCINATE 50 MG PO (13:51)
[2023-03-06] MEDS: CLARIFY ORDER NOTE (14:00)
[2023-03-06 21:24] VITALS: BP 120/55; PULSE 72; RESP 18; TEMP 36.7; O2SAT 96
[2023-03-07] MEDS: 0.9% Normal Saline 1,000 ML 125 ML IV ×3 (01:23→17:51)
[2023-03-07 03:35] VITALS: BP 129/55; PULSE 89; RESP 16; TEMP 36.6; O2SAT 97
--- NOTE | 2023-03-07 07:43 | PCM.PN.HOSP ---
Reason for Visit Reason for Visit: Diagnoses Diverticulitis of large intestine with perforation and abscess without bleeding (03/05/23) Subjective Subjective Patient is a 62-year-old female with history of recurrent diverticulitis presented with left lower abdominal pain Objective Data Objective Data Vital Signs: Vital Signs Temp Pulse Resp BP Pulse Ox O2 Del Method 97.9 F 89 16 129/55 H 97 Room Air 03/07/23 03:35 03/07/23 03:35 03/07/23 03:35 03/07/23 03:35 03/07/23 03:35 03/07/23 03:35 Oxygen Delivery Method Room Air Weight: 97.8 kg Body Mass Index (BMI) 39.4 Intake & Output: Intake and Output for Last 24 Hours 03/05/23 03/06/23 03/07/23 23:59 23:59 23:59 Intake Total 1145.42 / 1145.42 3012.50 / 3012.50 1050.5 / 1050.5 Balance 1145.42 / 1145.42 3012.50 / 3012.50 1050.5 / 1050.5 Lab / Micro Data Result Diagrams: 03/06/23 05:31 03/06/23 05:31 Physical Exam Narrative GENERAL: cooperative HEENT: Atraumatic; normocephalic EYES; Anicteric, Normal Conjunctiva NECK; supple, normal thyroid, RESPIRATORY: Diminished to auscultation CARDIOVASCULAR: Regular S1 S2, GI: soft, normoactive bowel sounds, : RUQ tenderness; EXTREMITIES: No edema, no clubbing, MUSCULOSKELETAL: no muscle wasting NEURO: Awake; no lateralizing signs. SKIN: No Rash PSYCH; Flat affect Assessment & Plan Assessment/Plan (1) Perforation of sigmoid colon due to diverticulitis: PLAN: Plan Patient is a 62-year-old female with history of recurrent diverticulitis presented with left lower abdominal pain 1. Acute diverticulitis with microperforation ? Patient admitted to regular nursing floor managed conservatively with bowel rest, pain meds as well as broad-spectrum antibiotic therapy with Zosyn patient has been seen in consultation by general surgery notes and recommendations reviewed 2. Hypertension - Blood pressure controlled, home medications continued with dose adjustment as needed 3. ADHD ? Patient is on Adderall continue 4. Depression ? Patient is on SNRI Pristiq did continue 5. DVT prophylaxis - Sc Heparin Time spent in the patient's overall evaluation,decision-making process, review of diagnostic data, adjustment of management, discussion with other providers, nursing nursing and ancillary staff involved in patient's care documentation, 35 Minutes Charges/Coding Visit Charges Inpatient E&M: 45959 Subs Hosp L2
--- NOTE | 2023-03-07 07:51 | PCM.PN.SRG ---
Subjective Subjective Patient states she is still having some abdominal pain but has not taken pain meds since yesterday afternoon and the pain has been slowly improving Objective Data Objective Data Vital Signs: Vital Signs Temp Pulse Resp BP Pulse Ox O2 Del Method 97.9 F 89 16 129/55 H 97 Room Air 03/07/23 03:35 03/07/23 03:35 03/07/23 03:35 03/07/23 03:35 03/07/23 03:35 03/07/23 03:35 Oxygen Delivery Method Room Air Weight: 215 lb 9.793 oz Body Mass Index (BMI) 39.4 Intake & Output: Intake and Output for Last 24 Hours 03/05/23 03/06/23 03/07/23 23:59 23:59 23:59 Intake Total 1145.42 / 1145.42 3012.50 / 3012.50 1050.5 / 1050.5 Balance 1145.42 / 1145.42 3012.50 / 3012.50 1050.5 / 1050.5 Lab / Micro Data Result Diagrams: 03/06/23 05:31 03/06/23 05:31 Physical Exam Const oriented x3 and no apparent distress Resp normal respiratory effort Cardio regular rate GI soft to palpation GI Narrative: Mild tenderness in the left lower quadrant> left upper quadrant> right lower quadrant, no rebound or guarding Assessment & Plan Assessment/Plan (1) Perforation of sigmoid colon due to diverticulitis: PLAN: Plan Patient's pain is improving with conservative management with IV Zosyn. continue okay for sips and chips. Would not plan to advance diet until pain has resolved. Also plan for repeat CT prior to patient discharge?soonest I recommend CT would be Monday. Arelis Sandoval M.D. Pager: [phone] [facility] [address] [place] [address], [facility], [address] [place] [id number] Office: [phone] Charges/Coding Visit Charges Inpatient E&M: 87985 Subs Hosp L2
[2023-03-07] MEDS: Ondansetron 4 MG/2 ML Vial IV (09:46)
[2023-03-07] MEDS: 0.9% Saline Lock 10 ML Syringe IV (09:46)
[2023-03-07 09:53] VITALS: BP 121/63; PULSE 76; RESP 16; TEMP 36.6; O2SAT 99
[2023-03-07] MEDS: Losartan Potassium 25 MG Tablet PO (10:03)
[2023-03-07] MEDS: DESVENLAFAXINE SUCCINATE 50 MG PO (10:03)
--- NOTE | 2023-03-07 13:15 | CASEMGMT ---
ABY JAIME Assessment: Face to Face with pt for initial transition planning/care coordination assessment. RN YENI introduced self and role at [facility], pt voices understanding and consents to assessment. Pt is A/O x4 and answers all questions appropriately at this time. Pt lying in bed in no distress. Care providers, pharmacy, and demographics verified/updated. Admitting Dx: acute diverticulitis PCP:Leeroy Specialists:Pt denies Preferred Pharmacy: [facility] Insurance: MMO Prescription Benefit: yes LNOK: Pastor Altman, Living Arrangements: Pt lives with in a single story home with 2 steps to enter with a rail. Pt reports she is I in ADL's and denies concerns at home. Transportation: Pt drives self and denies concerns with transportation. DME/HHC/SNF: Pt denies having any DME in the home, hx of HHC or SNF stays. Pt states no concerns with going home at time of dc. Pt states no further concerns/needs. CM to follow. Advised pt to ask CM if any further question/concerns/needs arise, voices understanding. Pt Goal: Home Plan: Home
[2023-03-07 14:57] VITALS: BP 116/58; PULSE 86; RESP 16; TEMP 36.6; O2SAT 96
[2023-03-07 19:31] VITALS: PULSE 80
[2023-03-07 21:28] VITALS: BP 139/63; PULSE 71; RESP 18; TEMP 36.6; O2SAT 100
[2023-03-08] MEDS: 0.9% Normal Saline 1,000 ML 125 ML IV ×3 (01:53→17:24)
[2023-03-08 01:54] VITALS: BP 139/59; PULSE 73; RESP 16; TEMP 36.6; O2SAT 99
[2023-03-08] MEDS: 0.9% Saline Lock 10 ML Syringe IV (02:01)
[2023-03-08] MEDS: HYDROcodone Bitartrate/Apap 5/325 Tablet PO ×3 (02:01→20:41)
[2023-03-08 06:14] LABS: Absolute Lymphocyte Count 1.85 X10^3/uL (0.83-4.51); Absolute Neutrophil Count 3.6 X10^3/uL (2.0-7.7); Basophil# 0.02 X10^3/uL; Basophil% 0.3 % (0-1); Eosinophil# 0.14 X10^3/uL; Eosinophils% 2.3 % (0-5); Hematocrit 33.8 % (37-47); Hemoglobin 10.4 g/dL (12.0-15.0); Lymphocyte # 1.85 X10^3/ul (0.83-4.51); Lymphocyte % 29.8 % (19-41); Mean Corp Hgb Conc 30.8 g/dL (32-36); Mean Corpuscular Hgb 28.5 pg (27.0-32.0); Mean Corpuscular Volume 92.6 fL (81-99); Mean Platelet Vol. 11.6 fl (6.2-12.0); Monocyte# 0.55 X10^3/uL; Monocyte% 8.9 % (0-10); NRBC Flagged by Analyzer 0 % (0-5); Neutrophil # 3.61 X10^3/uL (2.7-7.7); Neutrophil % 58.2 % (47-70); Platelet Count 159 K/mm3 (150-450); RBC Distribution Width CV 14.5 % (11.6-14.6); RBC Distribution Width SD 49.1 fl (35.1-43.9); Red Blood Count 3.65 M/mm3 (4.2-5.4); White Blood Count 6.2 K/mm3 (4.4-11.0)
[2023-03-08 06:54] LABS: Anion Gap 10 (5-15); BUN 8 mg/dL (7-18); BUN/Creat Ratio 11.5 RATIO (10-20); Calcium,Total 8.9 mg/dL (8.5-10.1); Chloride 110 mmol/L (98-107); EST Glomerular Filtration Rate 91 mL/min (>60); Est Glom Filt Rate - Afr Amer 110 mL/min (>60); Estimated Creatinine Clearance 66.75 ml/min; Glucose 58 mg/dL (74-106); Magnesium 1.6 mg/dL (1.6-2.6); Phosphorus 2.8 mg/dL (2.5-4.9); Potassium 4.1 mmol/L (3.5-5.1); Sodium Level 139 mmol/L (136-145)
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
[2023-03-08] MEDS: DESVENLAFAXINE SUCCINATE 50 MG PO (07:40)
[2023-03-08] MEDS: Losartan Potassium 25 MG Tablet PO (07:40)
[2023-03-08 08:00] VITALS: BP 122/66; PULSE 68; RESP 18; TEMP 36.6; O2SAT 96
--- NOTE | 2023-03-08 08:23 | CT_ITS ---
STUDY: CT ABDOMEN AND PELVIS WITH CONTRAST REASON FOR EXAM: Female, 62 years old. Perf sigmoid diverticulitis -- PO and IV RADIATION DOSAGE (If Supplied By Facility): CTDIvol = ( 15.35 ) mGy, DLP = ( 1180.71 ) mGycm TECHNIQUE: Transaxial images were obtained from the dome of the diaphragm to the symphysis pubis with oral contrast. Oral and amp; IV Gastrografin and amp; 100mL Isovue-300 was administered. Sagittal and coronal images were reconstructed. Individualized dose optimization techniques were used for this CT. COMPARISON: Comparison is made with prior study dated March 05, 2023. FINDINGS: The visualized lung bases are unremarkable. The visualized portions of the heart are within normal limits. Normal liver. Mildly distended gallbladder lumen. Normal spleen. Normal pancreas. Normal bilateral adrenal glands. 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 Stable small cyst in the upper pole of the left kidney. There is a small hiatal hernia. Status post partial gastrectomy. Normal small intestine. There is diverticulosis, with thickening of the colon wall, and pericolonic inflammation changes consistent with acute diverticulitis. Localized perforation is once again seen. The amount of inflammatory changes in the peritoneal fat has improved as compared to prior study. The appendix is visualized and appears normal. Normal abdominal aorta. Normal inferior vena cava. Normal retroperitoneum. Normal urinary bladder. Normal abdominal wall. Straightening of the normal lumbar lordosis. Spondylosis and disc space narrowing at the L2-L3 level. Stable hemangioma in the body of the L3 vertebra. CT/Abdomen/Pelvis WITH Contrast IMPRESSION: Localized perforated sigmoid diverticulitis. The inflammatory changes have improved as compared to prior study. Electronically Signed: Anibal Ng MD at 11:59 EDT ,
--- NOTE | 2023-03-08 08:23 | PCM.PN.SRG ---
Subjective Subjective Patient states her left lower quadrant pain still improving did not need pain meds for this yesterday as well. Occasional of some discomfort turning a certain way which is brief. Objective Data Objective Data Vital Signs: Vital Signs Temp Pulse Resp BP Pulse Ox O2 Del Method 97.8 F 73 16 139/59 H 99 Room Air 03/08/23 01:54 03/08/23 01:54 03/08/23 01:54 03/08/23 01:54 03/08/23 01:54 03/08/23 01:54 Oxygen Delivery Method Room Air Weight: 215 lb 9.793 oz Body Mass Index (BMI) 39.4 Intake & Output: Intake and Output for Last 24 Hours 03/06/23 03/07/23 03/08/23 23:59 23:59 23:59 Intake Total 3012.50 / 3012.50 3150.5 / 3150.5 1050 / 1050 Balance 3012.50 / 3012.50 3150.5 / 3150.5 1050 / 1050 Lab / Micro Data Result Diagrams: 03/08/23 05:55 03/08/23 05:55 Labs: Laboratory Results - last 24 hr 03/08/23 05:55: WBC 6.2, RBC 3.65 L, Hgb 10.4 L, Hct 33.8 L, MCV 92.6, MCH 28.5, MCHC 30.8 L, RDW Std Deviation 49.1 H, RDW Coeff of [place] 14.5, Plt Count 159, MPV 11.6, Immature Gran % (Auto) 0.500, Neut % (Auto) 58.2, Lymph % (Auto) 29.8, [place] % (Auto) 8.9, Eos % (Auto) 2.3, Baso % (Auto) 0.3, Absolute Neuts (auto) 3.6, Absolute Lymphs (auto) 1.85, Nucleated RBC % 0 03/08/23 05:55: Sodium 139, Potassium 4.1, Chloride 110 H, Carbon Dioxide 19.0 L, Anion Gap 10, BUN 8, Creatinine 0.70, Estim Creat Clear Calc 66.75, Est GFR (MDRD) Af Amer 110, Est GFR (MDRD) Non-Af 91, BUN/Creatinine Ratio 11.5, Glucose 58 L, Calcium 8.9, Phosphorus 2.8, Magnesium 1.6 Physical Exam Const oriented x3 and no apparent distress Resp normal respiratory effort Cardio regular rate GI soft to palpation GI Narrative: minimal tenderness in the left lower quadrant, no rebound or guarding Extremity normal to inspection Assessment & Plan Assessment/Plan (1) Perforation of sigmoid colon due to diverticulitis: PLAN: Plan We will check CT abdomen pelvis today with p.o. and IV contrast. As long as not worse we will plan to advance diet to clear/fulls. Arelis Sandoval M.D. Pager: [phone] [facility] [address] [place] [address], [facility], [address] [place] [address] Office: [phone] Charges/Coding Visit Charges Inpatient E&M: 20827 Subs Hosp L3
[2023-03-08 14:20] VITALS: BP 120/54; PULSE 81; RESP 18; TEMP 36.6; O2SAT 97
[2023-03-08 20:20] VITALS: BP 164/87; PULSE 82; RESP 18; TEMP 36.3; O2SAT 100
[2023-03-09] MEDS: 0.9% Normal Saline 1,000 ML 125 ML IV ×2 (00:18→08:16)
[2023-03-09 02:13] VITALS: BP 145/72; PULSE 69; RESP 18; TEMP 36.4; O2SAT 96
[2023-03-09] MEDS: HYDROcodone Bitartrate/Apap 5/325 Tablet PO (02:41)
[2023-03-09 05:12] VITALS: BP 133/75; PULSE 69; RESP 18; TEMP 36.5; O2SAT 96
[2023-03-09 05:43] LABS: Absolute Lymphocyte Count 1.47 X10^3/uL (0.83-4.51); Absolute Neutrophil Count 2.6 X10^3/uL (2.0-7.7); Basophil# 0.02 X10^3/uL; Basophil% 0.4 % (0-1); Hematocrit 32.4 % (37-47); Hemoglobin 10.3 g/dL (12.0-15.0); Lymphocyte # 1.47 X10^3/ul (0.83-4.51); Lymphocyte % 32.7 % (19-41); Mean Corp Hgb Conc 31.8 g/dL (32-36); Mean Corpuscular Hgb 28.9 pg (27.0-32.0); Mean Corpuscular Volume 90.8 fL (81-99); Mean Platelet Vol. 11.7 fl (6.2-12.0); Monocyte# 0.43 X10^3/uL; Monocyte% 9.6 % (0-10); NRBC Flagged by Analyzer 0 % (0-5); Neutrophil # 2.55 X10^3/uL (2.7-7.7); Neutrophil % 56.9 % (47-70); Platelet Count 156 K/mm3 (150-450); RBC Distribution Width CV 14.3 % (11.6-14.6); RBC Distribution Width SD 47.8 fl (35.1-43.9); Red Blood Count 3.57 M/mm3 (4.2-5.4); White Blood Count 4.5 K/mm3 (4.4-11.0)
[2023-03-09 06:06] LABS: Anion Gap 7 (5-15); BUN 5 mg/dL (7-18); Calcium,Total 8.5 mg/dL (8.5-10.1); Chloride 111 mmol/L (98-107); Creatinine, Serum 0.56 mg/dL (0.55-1.02); EST Glomerular Filtration Rate 118 mL/min (>60); Est Glom Filt Rate - Afr Amer 142 mL/min (>60); Estimated Creatinine Clearance 83.44 ml/min; Glucose 80 mg/dL (74-106); Potassium 3.8 mmol/L (3.5-5.1); Sodium Level 141 mmol/L (136-145)
[2023-03-09 08:17] VITALS: BP 154/78; PULSE 76; RESP 18; TEMP 36.6; O2SAT 100
[2023-03-09] MEDS: DESVENLAFAXINE SUCCINATE 50 MG PO (10:12)
[2023-03-09] MEDS: Losartan Potassium 25 MG Tablet PO (10:13)
[2023-03-09] MEDS: 0.9% Saline Lock 10 ML Syringe IV (10:17)
--- NOTE | 2023-03-09 10:44 | PN.SURG_ITS ---
Subjective Subjective Patient denies any abdominal pain. Patient tolerated clears and fulls yesterday. Objective Data Objective Data Vital Signs: Vital Signs Temp Pulse Resp BP Pulse Ox O2 Del Method 97.9 F 76 18 154/78 H 100 Room Air 03/09/23 08:17 03/09/23 08:17 03/09/23 08:17 03/09/23 08:17 03/09/23 08:17 03/09/23 08:23 Oxygen Delivery Method Room Air Weight: 215 lb 9.793 oz Body Mass Index (BMI) 39.4 Intake & Output: Intake and Output for Last 24 Hours 03/07/23 03/08/23 03/09/23 23:59 23:59 23:59 Intake Total 3150.5 / 3150.5 3062.03 / 3062.03 Balance 3150.5 / 3150.5 3062.03 / 3062.03 Lab / Micro Data Result Diagrams: 03/09/23 05:09 03/09/23 05:09 Labs: Laboratory Results - last 24 hr 03/09/23 05:09: WBC 4.5, RBC 3.57 L, Hgb 10.3 L, Hct 32.4 L, MCV 90.8, MCH 28.9, MCHC 31.8 L, RDW Std Deviation 47.8 H, RDW Coeff of [place] 14.3, Plt Count 156, MPV 11.7, Immature Gran % (Auto) 0.400, Neut % (Auto) 56.9, Lymph % (Auto) 32.7, [place] % (Auto) 9.6, Eos % (Auto) 0.0, Baso % (Auto) 0.4, Absolute Neuts (auto) 2.6, Absolute Lymphs (auto) 1.47, Nucleated RBC % 0 03/09/23 05:09: Sodium 141, Potassium 3.8, Chloride 111 H, Carbon Dioxide 23.0, Anion Gap 7, BUN 5 L, Creatinine 0.56, Estim Creat Clear Calc 83.44, Est GFR (MDRD) Af Amer 142, Est GFR (MDRD) Non-Af 118, BUN/Creatinine Ratio 9.0 L, G lucose 80, Calcium 8.5 Radiography Diagnostic Testing: Radiology Impression Abdomen/Pelvis CT 03/08/23 08:23 IMPRESSION: Localized perforated sigmoid diverticulitis. The inflammatory changes have improved as compared to prior study. Electronically Signed: Anibal Ng MD at 11:59 EDT , Physical Exam Const oriented x3 and no apparent distress Resp normal respiratory effort Cardio regular rate GI soft to palpation and non-tender Inspection: Negative for abdominal distention Assessment & Plan Assessment/Plan (1) Perforation of sigmoid colon due to diverticulitis: PLAN: Plan Okay to DC home today with Augmentin x2 weeks. Initially mostly full liquids for couple days then okay for the low residue diet. While patient follow-up before Augmentin is complete to see if whether we need to extend it or get a CAT scan at that time. Patient agreeable plan. Arelis Sandoval M.D. Pager: [phone] [facility] [address] [place] [address], [facility], [address] [place] [address] Office: [phone] Charges/Coding Visit Charges Inpatient E&M: 29068 Subs Hosp L2
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
[2023-03-09 13:08] VITALS: BP 159/89; PULSE 78; RESP 16; TEMP 37; O2SAT 100
== END 2023-03-09 13:15 | disposition home or self-care (01) | DRG 392 ==
LOC: ED 11:37 → MS3 12:53
PROVIDERS: Admitting Provider Internal Medicine; Emergency Provider Emergency Medicine; PCP Family Medicine; Visit Provider Internal Medicine
DX: K57.20 Diverticulitis of large intestine with perforation and abscess without bleeding (principal); F32.A Depression, unspecified; I10 Essential (primary) hypertension; S62.92XD Unspecified fracture of left hand, subsequent encounter for fracture with routine healing; V99.XXXD Unspecified transport accident, subsequent encounter; F90.9 Attention-deficit hyperactivity disorder, unspecified type; Z79.899 Other long term (current) drug therapy; Z98.84 Bariatric surgery status; Z87.19 Personal history of other diseases of the digestive system
CPT/HCPCS: 36415; 74176; 74177; 80048; 81001; 83735; 84100; 85025; 99284; J7030; J7050; Q9967; A4216; J0744; J2405

== ENCOUNTER → 2023-04-03 | Outpatient (CLI) | payer OTHER, SELFPAY ==
--- NOTE | 2023-04-03 11:55 | CT_ITS ---
STUDY: CT ABDOMEN AND PELVIS WITH CONTRAST - URINARY TRACT REASON FOR EXAM: Female, 62 years old. Perforated diverticulitis RADIATION DOSAGE (If Supplied By Facility): CTDIvol = ( 16.77 ) mGy, DLP = ( 1230.00 ) mGycm TECHNIQUE: Oral and amp; IV Gastrografin and amp; 100mL Isovue-300 was administered. Transaxial images were obtained from the dome of the diaphragm to the symphysis pubis in the arterial, nephrographic and excretory phases. Multiplanar coronal and sagittal images were reformatted. Individualized Dose Optimization Techniques Were Used For This CT. COMPARISON: 03/08/2023. FINDINGS: The visualized lung bases are unremarkable. The visualized portions of the heart are within normal limits. Normal liver. Normal gallbladder and extrahepatic biliary system. Normal spleen. Normal pancreas. Normal bilateral adrenal glands. Postoperative changes in the region of the stomach. Small hiatal hernia. Normal in caliber small bowel loops. Unremarkable appendix. Markedly improved diverticulitis of the distal descending colon and sigmoid colon. Small contained pocket of air anteriorly decreased in size since previous exam. No evidence of drainable abscess. The appendix is visualized and appears normal. Normal abdominal aorta. No retroperitoneal adenopathy. Hypodense lesion upper pole of the right kidney which could represent lipoma unchanged. Heterogeneous hypodense lesion in the lower pole of right kidney unchanged likely representing cyst. No evidence of hydronephrosis. Normal urinary bladder. Normal abdominal wall. Probability hemangioma in the vertebral body of L3. No demonstrated acute osseous changes. CT/Abdomen/Pelvis WITH Contrast IMPRESSION: 1. Continued improvement diverticulitis of the distal descending and sigmoid colon. Persistent contained pockets of air decreased since the previous exam. No evidence of drainable abscess. 2. Right renal lesions stable since the previous exam appears to be benign. 3. No new focal acute inflammatory process. 4. Small hiatal hernia. Postoperative changes in the stomach. Electronically Signed: Edy Dorantes MD at 15:17 EDT ,
== END | disposition home or self-care (01) ==
LOC: CT 11:52
PROVIDERS: PCP Family Medicine; Visit Provider Surgery
DX: K57.20 Diverticulitis of large intestine with perforation and abscess without bleeding (principal)
CPT/HCPCS: 74177; Q9967

== ENCOUNTER → 2023-04-18 | Outpatient (CLI) | payer OTHER, SELFPAY ==
[2023-04-18 11:24] LABS: Hemoglobin 13.9 g/dL (12.0-15.0); Mean Corp Hgb Conc 30.9 g/dL (32-36); Mean Corpuscular Hgb 28.6 pg (27.0-32.0); Mean Corpuscular Volume 92.6 fL (81-99); Mean Platelet Vol. 11.5 fl (6.2-12.0); Platelet Count 267 K/mm3 (150-450); RBC Distribution Width CV 15.3 % (11.6-14.6); RBC Distribution Width SD 52.4 fl (35.1-43.9); Red Blood Count 4.86 M/mm3 (4.2-5.4); White Blood Count 7.9 K/mm3 (4.4-11.0)
== END | disposition home or self-care (01) ==
LOC: PAVLAB 11:16
PROVIDERS: PCP Family Medicine; Referring Provider Surgery; Visit Provider Surgery
DX: K57.20 Diverticulitis of large intestine with perforation and abscess without bleeding (principal)
CPT/HCPCS: 36415; 85027

== ENCOUNTER 2023-04-26 09:22 | Inpatient (IN) | payer OTHER, SELFPAY ==
--- NOTE | 2023-04-21 07:59 | EKG12_ITS ---
Test Reason : PREOP Blood Pressure : / mmHG Vent. Rate : 078 BPM Atrial Rate : 078 BPM P-R Int : 114 ms QRS Dur : 084 ms QT Int : 376 ms P-R-T Axes : 013 011 022 degrees QTc Int : 428 ms Normal sinus rhythm Normal ECG Confirmed by THOMAS ALY, MIHIR ([id number]), features editor OSITO SESAY ([id number]) on 04/21/2023 12:55:06 PM Referred By: Arelis Sandoval Confirmed By:MIHIR GUZMAN MD
[2023-04-21 09:44] LABS: Magnesium 2.1 mg/dL (1.6-2.6)
[2023-04-26] VITALS (10 sets, daily range): BP systolic 76–177; BP diastolic 50–91; PULSE 45–76; RESP 16–18; TEMP 35.6–36.9; O2SAT 94–100; BMI 37.9; BMI 39.3
[2023-04-26] MEDS: Lactated Ringers 1,000 ML 40 ML IV ×2 (09:40→20:13)
--- NOTE | 2023-04-26 09:42 | PCM.HP.BLA ---
History and Physical Date of Admission: 04/26/23 Date of Service: 04/18/23 MR#:[id number] Acct:[id number] Name: BIBI AGUILLON Rep #: [id number] : 1960 Provider: Dr. Arelis Sandoval MD Age/Sex: 62/F Location: [facility] Status: Signed with Addenda ADDENDUM by Dr. Arelis Sandoval MD on 04/20/23 at 0900 Intake Chief Complaint: Diverticulitis f/u Allergies morphine Adverse Reaction (Verified 04/18/23 10:06) Nausea Medications desvenlafaxine succinate 50 mg tablet,extended release 24 hr (Pristiq) 50 mg PO DAILY ANTIDEPRESSANT 07/17/18 [History Confirmed 04/18/23] cetirizine 10 mg tablet 10 mg PO DAILY ALLERGIES 03/05/23 [History Confirmed 04/18/23] losartan 25 mg tablet 25 mg PO DAILY BP 03/05/23 [History Confirmed 04/18/23] acetaminophen 325 mg tablet 650 mg (2 x 325 mg) PO Q4H PRN PRN PAIN 0-10 #0 tabs 03/09/23 [Rx Confirmed 04/18/23] ciprofloxacin HCl 500 mg tablet 500 mg PO BID #14 tabs 04/18/23 [Rx Confirmed 04/18/23] metronidazole 500 mg tablet 500 mg PO .COMPLEX #6 tabs 04/18/23 [Rx Confirmed 04/18/23] metronidazole 500 mg tablet 500 mg PO Q8H #21 tabs 04/18/23 [Rx Confirmed 04/18/23] neomycin 500 mg tablet 500 mg PO .COMPLEX pre-op antibiotics #6 tabs 04/18/23 [Rx Confirmed 04/18/23] Assessment and Plan Assessment and Plan (1) Perforation of sigmoid colon due to diverticulitis: Status: Acute Orders: Orders CBC-Complete Blood Cnt No Diff 04/18/23 K57.20 - Diverticulitis of large intestine with perforation and abscess without bleeding Dr. Arelis Sandoval MD Medications: New metronidazole 500 mg PO Take 2 (two) tablets at 1300, 1500, 2300 6 tabs 0RF Padmini LONDON PA-C neomycin Take two (2) 500 mg tablets PO at 1300, 1500, 2300 6 tabs 0RF pre-op antibiotics Padmini LONDON PA-C Refilled ciprofloxacin HCl 500 mg PO BID [address] Arelis Sandoval MD metronidazole 500 mg PO Q8H [address] Arelis Sandoval MD 04/20/23 0900 <Electronically signed by Arelis Sandoval MD> Date Arelis Sandoval MD cc: Dr. Brandon Umaña MD ~* Signed Intake Vital Signs 03/07/2313:45 Height 5 ft 2 in Intake Visit Reasons: DIVERTICULITIS 04/03 Chief Complaint: Diverticulitis f/u Allergies morphine Adverse Reaction (Verified 04/18/23 10:06) Nausea Medications desvenlafaxine succinate 50 mg tablet,extended release 24 hr (Pristiq) 50 mg PO DAILY ANTIDEPRESSANT 07/17/18 [History Confirmed 04/18/23] cetirizine 10 mg tablet 10 mg PO DAILY ALLERGIES 03/05/23 [History Confirmed 04/18/23] losartan 25 mg tablet 25 mg PO DAILY BP 03/05/23 [History Confirmed 04/18/23] acetaminophen 325 mg tablet 650 mg (2 x 325 mg) PO Q4H PRN PRN PAIN 0-10 #0 tabs 03/09/23 [Rx Confirmed 04/18/23] ciprofloxacin HCl 500 mg tablet 500 mg PO BID #14 tabs 04/18/23 [Rx Confirmed 04/18/23] metronidazole 500 mg tablet 500 mg PO .COMPLEX #6 tabs 04/18/23 [Rx Confirmed 04/18/23] metronidazole 500 mg tablet 500 mg PO Q8H #21 tabs 04/18/23 [Rx Confirmed 04/18/23] neomycin 500 mg tablet 500 mg PO .COMPLEX pre-op antibiotics #6 tabs 04/18/23 [Rx Confirmed 04/18/23] PFSH Medical History Depression History of diverticulitis HTN (hypertension) Surgical History Gastric bypass status for obesity H/O foot surgery H/O tubal ligation History of endometrial ablation Family History Other Breast cancer CVA (cerebral vascular accident) Diabetes Social History Smoking Status: Never smoker HPI HPI HPI: 62-year-old female presents for follow-up for smoldering diverticulitis. Patient CT from October showed the same area being inflamed which patient had a CT in January which was perforated in February and she has been on antibiotics since the end of February with another episode of pain while still on antibiotics. CT abdomen pelvis at that time also showed some improvement but still air bubbles outside the colon. Patient is continued on her Cipro Flagyl which she was given the last office visit when she was having increased pain left lower quadrant as she was still on her Augmentin. Patient states she has occasional twinges but overall seems the pain is improved. Patient is tolerating diet and having bowel function. Patient here to discuss elective sigmoidectomy due to failed medical treatment of her diverticulitis. ROS General General: No weakness HEENT HEENT: No hoarseness Endo Endocrine: No cold intolerance Skin Skin: No rash Musc Musculoskeletal: No joint pain Cardio Cardiovascular: No chest pain Psych Psychiatric: No depression or anxiety Resp Respiratory: No shortness of breath, No cough and No wheezing Gastro Gastrointestinal: Yes abdominal pain, No nausea or vomiting and No blood in stool Antonio Hematologic: No bleeding Neuro Neurologic: No dizziness and No weakness Exam Const General: cooperative, healthy appearing, comfortable and no acute distress HENMT Head: normocephalic and atraumatic Neck Neck: supple Resp Effort & Inspection: normal respiratory effort Cardio Rate: regular rate GI Inspection: non-distended Palpation: soft, no hernias and nontender Skin General: no rashes or lesions noted Neuro General: CN's II-XI intact bilaterally Extrem General: normal to inspection Psych Mental Status: mental status grossly normal Attitude: cooperative Assessment and Plan Assessment and Plan (1) Perforation of sigmoid colon due to diverticulitis: Status: Acute Orders: Orders CBC-Complete Blood Cnt No Diff 04/18/23 K57.20 - Diverticulitis of large intestine with perforation and abscess without bleeding Dr. Arelis Sandoval MD Medications: New metronidazole 500 mg PO Take 2 (two) tablets at 1300, 1500, 2300 6 tabs 0RF Padmini LONDON PA-C neomycin Take two (2) 500 mg tablets PO at 1300, 1500, 2300 6 tabs 0RF pre-op antibiotics Padmini LONDON PA-C Refilled ciprofloxacin HCl 500 mg PO BID [address] Arelis Sandoval MD metronidazole 500 mg PO Q8H [address] Arelis Sandoval MD Plan Discussed with patient this area has been inflamed at least since January and also was area of concern in October. Patient has been on antibiotics since her February hospitalization and does not have complete resolution and did also have episode of increased pain. Do not think this is going to completely resolve with medical management. We will plan for elective laparoscopic sigmoid colectomy. Patient did have a colonoscopy in late 2017 which was normal. Did discuss the anatomy and procedure: ERAS laparoscopic sigmoid colectomy, possible open with the patient. Including risks, but not limited to, bleeding, infection (superficial or intraabdominal), injury to another organ (small bowel, colon, ureter, etc.) requiring additional procedures, and blood clots. Also, discussed the pre-op, colon prep and antibiotics. All questions were answered. Arelis Sandoval M.D. Pager: [phone] [facility] [address] [place] [address], [facility], [address] [place] [address] Office: [phone] Coding Level of Care Code Off vis,est,level 4 Diagnoses Perforation of sigmoid colon due to diverticulitis K57.20 04/20/23 0859 <Electronically signed by Arelis Sandoval MD> Date Arelis Sandoval MD
[2023-04-26] MEDS: Magnesium 1 GM over 15 mins IV (09:45)
[2023-04-26] MEDS: Acetaminophen 500 MG Tablet 1000 MG PO ×2 (09:52→20:13)
[2023-04-26] MEDS: Gabapentin 600 MG Tablet PO (09:52)
[2023-04-26 10:34] LABS: Bedside Glucose 111 mg/dL (74-106)
--- NOTE | 2023-04-26 11:30 | COL_PTH ---
PATIENT: BIBI AGUILLON LOC: MS3 U#:[id number] AGE/SX: 62/F ROOM: VT315 RE04/26/[address]: Dr. Arelis Sandoval MD : 1960 BED: 1 DIS: 04/28/2023 SPEC #: [id number] RECD: 04/27/23 08:04 STATUS: JOSIE RICO #: [id number] DIMA: 04/26/23 11:[address]: Arelis Sandoval DEPT: SURGICAL PATHOLOGY RECD BY: Elsy Gordillo ENTERED: 04/27/23 10:13 SP TYPE: COLON OTHR DR: Dr. Catrachito Umaña MD Tissues: A - Colon, NOS B - Colon Donuts C - Colon Donuts Procedures: Surgery Specimen Level III Surgery Specimen Level V HEADER OPERATION: ERAS, laparoscopic sigmoid colectomy PRE-OP DIAGNOSIS: Perforation of sigmoid colon due to diverticulitis TISSUE SUBMITTED: A - Sigmoid colon, stitch carmona distal, B - Distal rectal donut, C - Proximal sigmoid donut MICROSCOPIC DIAGNOSIS A. Sigmoid colon, segmental resection: Diverticular disease of colon. Margins of excision with no pathologic change. Pericolic fibrofatty tissue with benign histiocytic reaction and fecal debris suggestive of viscous perforation. One out of one lymph node with no pathologic change. B. Distal mucosal donut, excision: No pathologic change. C. Proximal sigmoid colon donut, excision: No pathologic change. AM: 05/01/2023 MICROSCOPIC DESCRIPTION Slides are reviewed. GROSS DESCRIPTION A - Received in fixative is one container labeled with the patient's name and designated sigmoid colon. The specimen consists of an oriented fragment of colon measuring 11.0 cm in length and surrounded by shaggy, fibroadipose tissue. A stitch carmona the distal mucosal margin. The mucosal is thrown into normal folds. No mucosal lesions are identified. No gross perforations are seen. Also present free in the container is an irregular fragment of sutton mucosa measuring 3.0 x 1.0 x 1.0 cm. No lesions are seen in this fragment. The specimen is left for additional fixation. AM: 04/27/2023 Serial sections reveal a number of diverticula. None of these appear to have perforated through the bowel wall. The pericolic soft tissue contains a number of nodules resembling lymph nodes. Client Consultant sections are submitted as follows: 1 - proximal margin, 2 - distal margin and fragment of mucosal tissue free in container (small fragment), 3-5 - diverticula, 6 - possible lymph nodes. / AM: 04/28/2023 B - Received in fixative is one container labeled with the patient's name and designated distal rectal donut. The specimen consists of a sutton mucosal donut measuring 2.0 cm in diameter and 1.0 cm in thickness. No mucosal lesions are noted. Client Consultant sections are submitted in one cassette. AM: 04/27/2023 C - Received in fixative is one container labeled with the patient's name and designated proximal sigmoid donut. The specimen consists of a sutton mucosal donut measuring 2.0 cm in diameter and 1.5 cm in thickness. No mucosal lesions are noted. Client Consultant sections are submitted in one cassette. / AM: 04/27/2023 TC:3 CPT: 12974, 57876 x2
[2023-04-26] MEDS: 0.9% Normal Saline (Pres. free 10 ML Vial (12:34)
[2023-04-26] MEDS: BUPIVACAINE LIPOSOME/PF 20 ML VIAL OPERA.SITE (12:34)
[2023-04-26] MEDS: Bupivacaine 0.25% 30 ML Vial (12:34)
--- NOTE | 2023-04-26 16:44 | PCM.OPRPT ---
Report of Operation Date of Procedure: 04/26/23 Pre-Operative Diagnosis: hx of perforated sigmoid diverticulitis, smoldering diverticulitis Post-Operative Diagnosis: Same Surgery/Procedure Performed:: Laparoscopic sigmoid colectomy Surgeon: Arelis Sandoval direct service provider: Ester Díaz direct service provider: Delia Finley Type of Anesthesia: General/Supplemental Anesthesiologist: Andrez Johnston Special Medications: Cefotetan 2 g IV x1 Specimen's removed: 1. Sigmoid colon, 2. Proximal donut 3. Distal donut Estimated Blood Loss (mL): 50 cc Description of Procedure: Indications: this is a 62-year-old female who history of perforated sigmoid diverticulitis which failed medical management. Laparoscopic sigmoidectomy was elected. Description procedure: The patient was placed on operating table in low lithotomy position with appropriate padding. General Anesthesia was induced. Juarez catheter was placed. A timeout was completed verifying correct patient, procedure, site, position, social, and special equipment prior to beginning procedure. The rectum was irrigated with Betadine solution. The abdomen was prepped and draped in usual sterile fashion. An incision was made in the natural skin line above the umbilicus. The fascia was elevated and incised. The peritoneum was elevated and incised. Entry into the peritoneum was confirmed visually and no bowel was noted in the vicinity of the incision. Rdz trocar was placed. The abdomen was insufflated with carbon dioxide to a pressure of 12-15 mmHg. Patient tolerated insufflation well. The laparoscope was then inserted and abdomen inspected. No injuries from initial trocar placement were noted. Additional trochars were then inserted in the following locations 5 mm trocar in the right lower quadrant and another in the right mid lateral abdomen. The abdomen was inspected, there was noted to be adhesion to the left lower quadrant in the area of her previous perforated diverticulitis, majority of adhesions were easily swept down, Enseal was used to remove the remaining. The table is placed in reverse Trendelenburg position with the left side up. Enseal was used to go along the white line of Toldt and free up the splenic flexure. Once we had adequate mobility patient was placed in Trendelenburg. The junction of the rectosigmoid colon was identified and was circumferential dissected. The right lower quadrant trocar was enlarged to accommodate the 12 mm trocar for the stapler. The [place] 60 regular load stapler was used to divide the colon at the rectosigmoid junction. The sigmoid mesentery was divided using the Enseal and hemoclips were placed on the sigmoid artery near take off. The area of proximal sigmoid colon plan for the anastomosis appeared normal/viable. Small inferior midline incision was made to remove the sigmoid colon and wound protector was placed. [place] 60 regular load stapler was used to divide proximal sigmoid-proximal to the inflammed portion- and sent to pathology. The proximal sigmoid colon was cut using scissors, good blood supply to edges. 28 sizer fit easily in the colon. Anvil was sutured in place with 1 Prolene. The 29 EEA stapler was introduced to the rectum brought up to the staple line. Was opened and the anvil was attached after ensuring the mesentery was not twisted and there was no tension. The stapler was closed carefully making sure nothing was caught in the stapler. Stapler was fired and carefully removed. 2 complete donuts were removed from the stapler. A leak test with air was completed-- did not show any bubbles. Wound protector was removed and all gowns and gloves were changed. The supraumbilical incision was closed with [id number] 0 Vicryl sutures. Right lower quadrant port site was closed using a suture passer and 0 PDS suture. The lower midline incision fascia was closed with a running 0 Prolene. All wounds were irrigated. Skin was closed with Monocryl. Telfa and OpSite were placed. Sponge and instrument counts were correct at the end of case. The patient was extubated. The patient tolerated procedure well and was taken to the postanesthesia care unit in stable condition. Complications none
[2023-04-26] MEDS: Docusate Sodium 100 MG Capsule PO (20:13)
[2023-04-27] VITALS (9 sets, daily range): BP systolic 117–146; BP diastolic 49–64; PULSE 61–86; RESP 18; TEMP 36.5–37.2; O2SAT 90–97
[2023-04-27] MEDS: Acetaminophen 500 MG Tablet 1000 MG PO ×3 (01:57→11:46)
[2023-04-27 06:52] LABS: Hematocrit 35.9 % (37-47); Hemoglobin 11.6 g/dL (12.0-15.0); Mean Corp Hgb Conc 32.3 g/dL (32-36); Mean Corpuscular Hgb 29.1 pg (27.0-32.0); Mean Corpuscular Volume 90.2 fL (81-99); Mean Platelet Vol. 11.5 fl (6.2-12.0); Platelet Count 233 K/mm3 (150-450); RBC Distribution Width CV 15.1 % (11.6-14.6); RBC Distribution Width SD 50.6 fl (35.1-43.9); Red Blood Count 3.98 M/mm3 (4.2-5.4); White Blood Count 10.2 K/mm3 (4.4-11.0)
[2023-04-27 07:24] LABS: Anion Gap 7 (5-15); BUN 18 mg/dL (7-18); BUN/Creat Ratio 21.5 RATIO (10-20); Calcium,Total 8.6 mg/dL (8.5-10.1); Chloride 105 mmol/L (98-107); Creatinine, Serum 0.84 mg/dL (0.55-1.02); EST Glomerular Filtration Rate 73 mL/min (>60); Est Glom Filt Rate - Afr Amer 89 mL/min (>60); Estimated Creatinine Clearance 55.63 ml/min; Glucose 99 mg/dL (74-106); Potassium 3.8 mmol/L (3.5-5.1); Sodium Level 138 mmol/L (136-145)
[2023-04-27] MEDS: Losartan Potassium 25 MG Tablet PO (08:26)
[2023-04-27] MEDS: DESVENLAFAXINE SUCCINATE 50 MG PO (08:27)
[2023-04-27] MEDS: Docusate Sodium 100 MG Capsule PO ×2 (08:28→21:40)
--- NOTE | 2023-04-27 08:57 | PN.SURG_ITS ---
Subjective Subjective Patient has been well good urine output overnight we will remove Juarez this morning, patient denies any nausea has not needed any narcotic pain meds doing well with the Tylenol. Objective Data Objective Data Vital Signs: Vital Signs Temp Pulse Resp BP Pulse Ox O2 Del Method O2 Flow Rate 97.8 F 68 18 125/57 H 92 Room Air 2 04/27/23 06:55 04/27/23 06:55 04/27/23 06:55 04/27/23 06:55 04/27/23 08:10 04/27/23 08:10 04/27/23 00:20 Oxygen Flow Rate (L/min) 2 Oxygen Delivery Method Room Air Weight: 214 lb 15.211 oz Body Mass Index (BMI) 39.3 Intake & Output: Intake and Output for Last 24 Hours 04/25/23 04/26/23 04/27/23 23:59 23:59 23:59 Intake Total 623.33 / 623.33 Output Total 200 / 200 400 / 400 Balance 423.33 / 423.33 -400 / -400 Lab / Micro Data 04/27/23 06:15 04/27/23 06:15 Labs: Laboratory Results - last 24 hr 04/26/23 09:42: POC Glucose 111 H 04/27/23 06:15: WBC 10.2, RBC 3.98 L, Hgb 11.6 L, Hct 35.9 L, MCV 90.2, MCH 29.1, MCHC 32.3, RDW Std Deviation 50.6 H, RDW Coeff of [place] 15.1 H, Plt Count 233, MPV 11.5, Sodium 138, Potassium 3.8, Chloride 105, Carbon Dioxide 26.0, Anion Gap 7, BUN 18, Creatinine 0.84, Estim Creat Clear Calc 55.63, Est GFR (MDRD) Af Amer 89, Est GFR (MDRD) Non-Af 73, BUN/Creatinine Ratio 21.5 H, Glucose 99, Calcium 8.6 Physical Exam Const oriented x3 and no apparent distress Resp normal respiratory effort GI GI Narrative: Soft, incisions clean dry and intact tender near incisions otherwise no peritoneal signs Assessment & Plan Assessment/Plan (1) S/P laparoscopic colectomy: PLAN: Plan Continue clears, await bowel function Encourage ambulation up out of bed to chair Start Denise Sandoval M.D. Pager: [phone] [facility] [address] [place] [address], [address] [place] [address] Office: [phone]
--- NOTE | 2023-04-27 11:00 | CASEMGMT ---
ABY JAIME Assessment: Face to Face with pt for initial transition planning/care coordination assessment. RN YENI introduced self and role at [facility], pt voices understanding and consents to assessment. Pt is A/O x4 and answers all questions appropriately at this time. Pt lying in bed in no distress with at bedside. Care providers, pharmacy, and demographics verified/updated. Admitting Dx: Lap sigmoid colectomy PCP:Leeroy Specialists:Pt denies Preferred Pharmacy:[facility] Insurance: MMO Prescription Benefit: yes LNOK: Pastor Altman, Living Arrangements: Pt lives with in a single story home with 2 steps to enter with a rail. Pt reports she is I in ADL's and denies concerns at home. Transportation: Pt drives self and denies concerns with transportation. DME/HHC/SNF: Pt denies having any DME in the home, denies previous HHC and SNF stays. Pt states no concerns with going home at time of dc. Pt states no further concerns/needs. CM to follow. Advised pt to ask CM if any further question/concerns/needs arise, voices understanding. Pt Goal: Home Plan: Home
[2023-04-27] MEDS: Enoxaparin 40 MG/0.4 ML Syringe SC (11:45)
[2023-04-27] MEDS: Lactated Ringers 1,000 ML 40 ML IV ×2 (11:46→21:33)
--- NOTE | 2023-04-27 12:53 | CHAPLAIN ---
Type of Pastoral Visit _x__ Initial Visit ___ Follow-up Visit ___ On-call Visit ___ General Patient Visit ___ Spiritual Assessment ___ Family Conference ___ Bereavement ___ Rapid Response ___ Code Blue ___ Other (describe below) Pastoral Care Referral From _x__ Patient ___ Family ___ Nurse ___ Physician ___ Paramedic Instructor ___ Courseware Developer ___ Other (describe below) Sacrament/Intervention _x__ Active listening ___ Anointing ___ Yazidism ___ Bereavement ___ Communion ___ Mirtha exploration ___ ___ Life review ___ Prayer ___ Reconciliation ___ Sacrament of Sick ___ Supportive presence ___ Wedding ___ Other (describe below) Pastoral Comments patient resting in bed and spouse is on couch nearby resting too; pt says that she has lots of people praying for her and that everything has gone as best it can; pt declines needs and states goal as just getting a nap right now
[2023-04-28 00:40] VITALS: BP 132/60; PULSE 72; RESP 18; TEMP 36.6; O2SAT 96
[2023-04-28] MEDS: Acetaminophen 500 MG Tablet 1000 MG PO ×3 (00:41→11:42)
[2023-04-28 05:09] VITALS: BP 155/65; PULSE 69; RESP 18; TEMP 36.8; O2SAT 96
--- NOTE | 2023-04-28 08:24 | PN.SURG_ITS ---
Subjective Subjective Patient had bowel movements, ambulate in oliva, denies any nausea tolerating clears Objective Data Objective Data Vital Signs: Vital Signs Temp Pulse Resp BP Pulse Ox O2 Del Method O2 Flow Rate 98.2 F 69 18 155/65 H 96 Room Air 2 04/28/23 05:09 04/28/23 05:09 04/28/23 05:09 04/28/23 05:09 04/28/23 05:09 04/28/23 05:09 04/27/23 00:20 Oxygen Flow Rate (L/min) 2 Oxygen Delivery Method Room Air Weight: 214 lb 15.211 oz Body Mass Index (BMI) 39.3 Intake & Output: Intake and Output for Last 24 Hours 04/26/23 04/27/23 04/28/23 23:59 23:59 23:59 Intake Total 623.33 / 623.33 391.33 / 391.33 1000 / 1000 Output Total 200 / 200 400 / 400 Balance 423.33 / 423.33 -8.67 / -8.67 1000 / 1000 Lab / Micro Data 04/27/23 06:15 04/27/23 06:15 Physical Exam Const oriented x3 and no apparent distress Resp normal respiratory effort GI GI Narrative: Soft, incisions clean dry and intact tender near incisions otherwise no peritoneal signs Assessment & Plan Assessment/Plan (1) S/P laparoscopic colectomy: PLAN: Plan Advance to transitional diet. Patient tolerates will DC home today. Arelis Sandoval M.D. Pager: [phone] [facility] [address] [place] [address], [facility], [address] [place] [address] Office: [phone]
--- NOTE | 2023-04-28 08:26 | DS.PCM_ITS ---
Providers Date of Admission: 04/26/23 Primary Care Physician: Dr. Brandon Umaña MD Reason For Visit: LAP SIGMOIND COLECTOMY Diagnosis Discharge Diagnosis (1) S/P laparoscopic colectomy: Status: Acute Code(s): Z90.49 - Acquired absence of other specified parts of digestive tract Plan Advance to transitional diet. Patient tolerates will DC home today. Arelis Sandoval M.D. Pager: [phone] [facility] [address] [place] [address], [facility]patient [place], [address] [place] [id number] Office: [phone] Medications at Discharge Home Medications desvenlafaxine succinate 50 mg tablet,extended release 24 hr (Pristiq) 50 mg PO DAILY ANTIDEPRESSANT 07/17/18 losartan 25 mg tablet 25 mg PO DAILY BP 03/05/23 acetaminophen 325 mg tablet 650 mg (2 x 325 mg) PO Q4H PRN PRN PAIN 0-10 #0 tabs 03/09/23 cetirizine 10 mg capsule (All Day Allergy (cetirizine)) 10 mg PO DAILY PRN ALLERGIES 04/20/23 Hospital Course Operations colectomy (Laparoscopic sigmoid) Procedures None Summary of Care Provided Minutes Spent on Discharge: 15 Hospital Course: Patient came in for laparoscopic sigmoid colectomy due to smoldering diverticulitis. Postoperatively patient was on clears and was doing well. By postop day 2 patient did have multiple bowel movements and flatus. Patient was able to have her diet advanced to transitional. Patient tolerated diet was able to be sent home. Physical Exam Const oriented x3 and no apparent distress Resp normal respiratory effort GI GI Narrative: Soft, incisions clean dry and intact tender near incisions otherwise no peritoneal signs Weight / BMI Weight Weight: 214 lb 15.211 oz Body Mass Index (BMI) 39.3 ABG / Lab / Microbiology Data 04/27/23 06:15 04/27/23 06:15 D/C Instructions Discharge Diet: Light diet - advance as tolerated Discharge Activity: May Not Drive (while taking narcotic pain medications.) May shower in (days): 1 Lifting Restrictions: no lifting >20 lbs x 2 wks, no strenuous exercise for 4 wks Call your doctor if your incision/area has: Continuous Slow Oozing, Sudden Increased Bleeding, Increased Pain/ Swelling, Increased Redness, Foul Smelling Discharge and Swelling at the incision site Call your doctor if you observe: Fever of 101 or Higher Remove Dressing in: 2 days Cleanse incision/area with: Soap & Water Additional Dressing/Incision Instructions: Steri-Strips will fall off in 7 to 10 days, if they do not fall off okay to remove after 10 days. Please Follow Up With: Arelis Sandoval MD When: Call the office for a follow-up appointment 2 weeks; after 5 PM and on the weekends call [phone] with any concerns. Meaningful Use Info Meaningful Use Diagnoses (Choose all that apply): None applicable Discharge Plan Admission Admit Date/Time: 04/26/23 09:22 Attending Provider: Arelis Sandoval Primary Care Provider: Brandon Umaña Discharge Orders/Prescriptions Prescriptions: Continued desvenlafaxine succinate [Pristiq] 50 MG tablet 50 mg PO DAILY losartan 25 mg tablet 25 mg PO DAILY Patient Comments: 1 tablet once a day acetaminophen 325 mg Tablet 650 mg PO Q4H PRN PRN (Reason: PAIN 0-10) Qty: 0 0RF All Day Allergy (cetirizine) 10 mg capsule 10 mg PO DAILY PRN (Reason: ALLERGIES) Discontinued ciprofloxacin HCl 500 mg tablet 500 mg PO BID Qty: 14 0RF metronidazole 500 mg tablet 500 mg PO Q8H Qty: 21 0RF metronidazole 500 mg tablet 500 mg PO .COMPLEX Qty: 6 0RF Rx Instructions: 500 mg PO Take 2 (two) tablets at 1300, 1500, 2300 neomycin 500 mg tablet 500 mg PO .COMPLEX Qty: 6 0RF Rx Instructions: Take two (2) 500 mg tablets PO at 1300, 1500, 2300 Referrals / Follow Up: Brandon Umaña MD [Primary Care Provider] - Disposition Disposition (needs filled in before D/C Order can be placed): Home, Self Care
[2023-04-28 08:48] VITALS: O2SAT 91
[2023-04-28 08:53] VITALS: BP 149/61; PULSE 71; RESP 18; TEMP 36.6; O2SAT 96
[2023-04-28] MEDS: Docusate Sodium 100 MG Capsule PO (08:58)
[2023-04-28] MEDS: DESVENLAFAXINE SUCCINATE 50 MG PO (08:59)
[2023-04-28] MEDS: Enoxaparin 40 MG/0.4 ML Syringe SC (08:59)
[2023-04-28] MEDS: Losartan Potassium 25 MG Tablet PO (08:59)
--- NOTE | 2023-04-28 09:23 | PHA.DC.MR.R ---
Pharmacy [place] Med Reconciliation Pharmacy Service has performed discharge medication reconciliation for this patient. The patient's discharge medication list was reviewed for discrepancies and discrepancies were resolved. Medications at Discharge Home Medications desvenlafaxine succinate 50 mg tablet,extended release 24 hr (Pristiq) 50 mg PO DAILY ANTIDEPRESSANT 07/17/18 losartan 25 mg tablet 25 mg PO DAILY BP 03/05/23 acetaminophen 325 mg tablet 650 mg (2 x 325 mg) PO Q4H PRN PRN PAIN 0-10 #0 tabs 03/09/23 cetirizine 10 mg capsule (All Day Allergy (cetirizine)) 10 mg PO DAILY PRN ALLERGIES 04/20/23
--- NOTE | 2023-04-28 09:50 | CASEMGMT ---
Social Work SW met with pt to discuss advance directives. Pt states she has completed a living will and health care power of workers compensation attorney naming her spouse Pastor Altman. Pt aware documents are not on file and requested they be brought in for scanning into EMR. MARYANNE Gerard
[2023-04-28 15:51] VITALS: BP 163/69; PULSE 71; RESP 18; TEMP 36.2; O2SAT 98
== END 2023-04-28 16:44 | disposition home or self-care (01) | DRG 331 ==
LOC: ACINP 09:24 → MS3 17:08
PROVIDERS: Anesthesiology; Admitting Provider Surgery; PCP Family Medicine; Referring Provider Surgery; Visit Provider Surgery
PROC: 0DTN0ZZ Resection of Sigmoid Colon, Open Approach (ICD-10-PCS; CPT 44204; principal; 2023-04-26 11:05)
DX: K57.32 Diverticulitis of large intestine without perforation or abscess without bleeding (principal); I10 Essential (primary) hypertension; Z79.899 Other long term (current) drug therapy; Z98.84 Bariatric surgery status; Z87.19 Personal history of other diseases of the digestive system
CPT/HCPCS: 36415; 80048; 82962; 83735; 85027; 88304; 88307; 93005; 94668; 99252; J7120; C1760; G0463; J2405; J3475; J3490

== ENCOUNTER → 2023-09-22 | Outpatient (CLI) | payer OTHER, SELFPAY ==
--- NOTE | 2023-09-22 07:59 | BI_ITS ---
MAMMOGRAPHY - BILATERAL SCREENING REASON FOR EXAM: Female, 62 years old. Routine annual screening examination. PERTINENT HISTORY: Mother with breast cancer. Aunt with breast cancer. Remote left excisional breast biopsy. TECHNIQUE: Digital bilateral breast shabnam (3D mammographic acquisition) in the CC and MLO projections. 2-D mediolateral oblique (MLO) and craniocaudad (CC) views of both breasts were obtained. CAD: Full Field Digital Mammography with Computer Added Detection was performed. COMPARISON: Comparison is made with prior study dated August 11, 2020 and August 16, 2018. FINDINGS: Breast Composition: There are scattered areas of fibroglandular density. There are no dominant masses or suspicious calcifications. Stable small benign-appearing bilateral axillary lymph nodes. No other significant abnormalities are identified. There has been no significant change since the prior study. BI/SCRN MAMM (CAD)W/SHABNAM BILAT IMPRESSION: Stable bilateral screening mammogram. Yearly follow-up mammogram recommended. (A) ASSESSMENT CATEGORY: BIRADS Category 2: Benign. A letter regarding these results will be sent to the patient by the facility within 30 days. Approximately 10% of breast cancers are not detected by mammography. A normal mammogram should not delay biopsy of a clinically suspicious abnormality. [id number] Electronically Signed: Anibal Ng MD at 9:43 EST ,
== END | disposition home or self-care (01) ==
LOC: OPBI 07:57
PROVIDERS: PCP Family Medicine; Referring Provider Family Medicine; Visit Provider Family Medicine
DX: Z12.31 Encounter for screening mammogram for malignant neoplasm of breast (principal); Z80.3 Family history of malignant neoplasm of breast
CPT/HCPCS: 77063; 77067

== ENCOUNTER → 2024-06-18 | Outpatient (CLI) | payer OTHER, SELFPAY ==
[2024-06-18 11:26] LABS: ALB/GLOB Ratio 0.9 RATIO (0.9-2.4); AST(SGOT) 21 U/L (15-37); Alanine Aminotransfer ALT/SGPT 20 U/L (13-56); Albumin, Serum 3.6 g/dL (3.2-5.0); Alkaline Phosphatase 101 U/L (45-117); Anion Gap 3 (5-15); BUN 28 mg/dL (7-18); BUN/Creat Ratio 34.4 RATIO (10-20); Calcium,Total 9.8 mg/dL (8.5-10.1); Chloride 105 mmol/L (98-107); Cholesterol 187 mg/dL (200); Creatinine, Serum 0.82 mg/dL (0.55-1.02); EST Glomerular Filtration Rate 76 mL/min (>60); Est Glom Filt Rate - Afr Amer 91 mL/min (>60); Glucose 95 mg/dL (74-106); High Density Lipoprotein 93 mg/dL; Potassium 3.9 mmol/L (3.5-5.1); Protein, Total 7.6 g/dL (6.4-8.2); Sodium Level 139 mmol/L (136-145); Triglycerides 60 mg/dL; Very Low Density Lipoprotein 12 mg/dL (5-40)
[2024-06-19 11:24] LABS: T4 Free Direct 0.88 ng/dL (0.76-1.46)
== END | disposition home or self-care (01) ==
LOC: MFPLAB 08:12
PROVIDERS: PCP Family Medicine; Visit Provider Family Medicine
DX: E03.9 Hypothyroidism, unspecified (principal); I10 Essential (primary) hypertension; E55.9 Vitamin D deficiency, unspecified
CPT/HCPCS: 36415; 80053; 80061; 82306; 84439; 84443

== ENCOUNTER → 2024-10-03 | Outpatient (CLI) | payer OTHER, SELFPAY ==
--- NOTE | 2024-10-03 07:26 | BI_ITS ---
MAMMOGRAPHY - BILATERAL SCREENING 3-D TOMOSYNTHESIS REASON FOR EXAM: Female, 63 years old. SCREENING PERTINENT HISTORY: No significant family history. TECHNIQUE: 2-D mammograms and 3-D Tomosynthesis of the breast (s) were performed. CAD was performed. COMPARISON: 09/22/2023 FINDINGS: The breast composition is composed of scattered fibroglandular density. Scattered benign calcifications are seen. No dense spiculated masses or suspicious microcalcifications are identified. No architectural distortion is identified. There is no skin thickening or retraction. There has been no significant change since the prior study. BI/SCRN MAMM (CAD)W/SHABNAM BILAT IMPRESSION: No mammographic signs of malignancy. Routine yearly mammograms recommended. ASSESSMENT CATEGORY: BIRADS Category 1: Negative. A letter regarding these results will be sent to the patient by the facility within 30 days. FOLLOW UP RECOMMENDATION: Yearly follow up mammogram recommended. (A) Approximately 10% of breast cancers are not detected by mammography. A normal mammogram should not delay biopsy of a clinically suspicious abnormality. Electronically Signed: Prosper Kang MD at 8:32 EST ,
== END | disposition home or self-care (01) ==
PROVIDERS: PCP Family Medicine; Referring Provider Family Medicine; Visit Provider Family Medicine
DX: Z12.31 Encounter for screening mammogram for malignant neoplasm of breast (principal)
CPT/HCPCS: 77063; 77067

== ENCOUNTER → 2024-12-30 | Outpatient (CLI) | payer OTHER, SELFPAY ==
[2025-01-06 11:08] LABS: HPV APTIMA, High Risk Negative (Negative)
[2025-01-06 15:13] LABS: HPV Reflexed? YES, CHARGE PATIENT
== END | disposition home or self-care (01) ==
LOC: LABSPEC 09:03
PROVIDERS: PCP Family Medicine
DX: Z12.4 Encounter for screening for malignant neoplasm of cervix (principal)
CPT/HCPCS: 87624; 88175; G0145